=== PATIENT | female | born 1930 | race Caucasian/White ===

== ENCOUNTER → 2017-04-02 | Outpatient (CLI) | payer MEDICARE, MEDICAID | LOC: WOUNDCARE 09:46 | PROVIDERS: ATTEND Surgery | DX: L97.222 Non-pressure chronic ulcer of left calf with fat layer exposed (principal); I87.332 Chronic venous hypertension (idiopathic) with ulcer and inflammation of left lower extremity; I70.242 Atherosclerosis of native arteries of left leg with ulceration of calf; L03.116 Cellulitis of left lower limb | CPT/HCPCS: 11042; 87070; 87075; 87077; 87205 ==

== ENCOUNTER → 2017-04-09 | Outpatient (CLI) | payer MEDICARE, MEDICAID | LOC: WOUNDCARE 08:53 | PROVIDERS: ATTEND Surgery | DX: L97.222 Non-pressure chronic ulcer of left calf with fat layer exposed (principal); I87.332 Chronic venous hypertension (idiopathic) with ulcer and inflammation of left lower extremity; I70.242 Atherosclerosis of native arteries of left leg with ulceration of calf | CPT/HCPCS: 11042 ==

== ENCOUNTER → 2017-04-16 | Outpatient (CLI) | payer MEDICARE, MEDICAID | LOC: WOUNDCARE 09:00 | PROVIDERS: ATTEND Surgery | DX: L97.222 Non-pressure chronic ulcer of left calf with fat layer exposed (principal); I87.332 Chronic venous hypertension (idiopathic) with ulcer and inflammation of left lower extremity; I70.242 Atherosclerosis of native arteries of left leg with ulceration of calf | CPT/HCPCS: 97597 ==

== ENCOUNTER → 2017-04-23 | Outpatient (CLI) | payer MEDICARE, MEDICAID | LOC: WOUNDCARE 09:00 | PROVIDERS: ATTEND Surgery | DX: L97.222 Non-pressure chronic ulcer of left calf with fat layer exposed (principal); I87.332 Chronic venous hypertension (idiopathic) with ulcer and inflammation of left lower extremity; I70.242 Atherosclerosis of native arteries of left leg with ulceration of calf | CPT/HCPCS: 99212 ==

== ENCOUNTER 2017-10-31 09:14 | Emergency (ER) | payer MEDICARE, MEDICAID ==
[~2017-10-31] VITALS: Ht 162.6 cm; Wt 70.3 kg
--- OUTSIDE RECORDS SUMMARY | 2017-10-31 09:20 | XMS REPORT ---
Author Author [facility] Organization [facility] Address [address] [place], [place] [id number] Care Team Providers Care Washtub Worker Name Role Phone PCP Unavailable Allergies and Adverse Reactions Name Reaction Notes SULFA (SULFONAMIDES) swelling Plan of Treatment Not available. Medications Active Name Start Date Estimated Completion Date SIG Comments Xanax oral tablet 0.25 mg take 1 tablet (0.25 mg) by oral route daily q am Tums oral tablet,chewable 200 mg calcium (500 mg) chew 1-2 tablets by oral route As needed meclizine oral tablet 25 mg take 1 tablet (25 mg) by oral route 3 times per day as needed Milk of Magnesia oral suspension 400 mg/5 mL take 30 milliliters by oral route once daily as needed, followed by a full glass (8 oz) of liquid furosemide oral tablet 40 mg 03/17/2014 take 1 tablet (40 mg) by oral route once daily as needed potassium chloride oral capsule, extended release 10 mEq 03/17/2014 take 1 capsule (10 meq) by oral route once a day with furosemide Bactroban topical ointment 2 % 05/12/2014 apply to affected area by external route 2 times a day Miralax oral powder 17 gram/dose 10/27/2014 take 17 gram mixed with 8 oz. water, juice, soda, coffee or tea by oral route once every other day docusate sodium oral tablet 100 mg 10/27/2014 04/25/2015 take 1 tablet by oral route daily for 30 days Name Start Date Expiration Date SIG Comments prednisone oral tablet 20 mg 06/18/2014 06/23/2014 take 1 tablet (20 mg) by oral route once daily for 5 days clindamycin HCl oral capsule 300 mg 06/18/2014 06/25/2014 take 1 capsule ( 300 mg) by oral route 2 times per day for 7 days clindamycin HCl oral capsule 300 mg 09/03/2014 09/10/2014 take 1 capsule (300 mg) by oral route 2 times per day for 7 days prednisone oral tablet 20 mg 09/03/2014 09/08/2014 take 1 tablet (20 mg) by oral route once daily for 5 days Problem List Description Status Onset Anxiety Active Hypertension Active Muscle weakness Active Acid Reflux Active Hypothyroidism, Acquired Active Vital Signs Date Time BP-Sys(mm[Hg] BP-Althae(mm[Hg]) HR(bpm) RR(rpm) Temp WT HT HC BMI BSA BMI Percentile O2 Sat(%) 10/27/2014 10:56:00 AM 128 mmHg 70 mmHg 75 bpm 20 rpm 98.2 F 180 lbs 66.75 in 28.40 kg/m2 1.96 m2 100 % 09/24/2014 8:13:00 AM 148 mmHg 80 mmHg 77 bpm 16 rpm 96.9 F 182 lbs 66.75 in 28.7189 kg/m 1.9718 m 99 % 09/03/2014 3:21:00 PM 162 mmHg 80 mmHg 88 bpm 20 rpm 98 F 179 lbs 78.75 in 20.29 kg/m2 2.12 m2 98 % 07/14/2014 8:06:00 AM 136 mmHg 72 mmHg 78 bpm 16 rpm 98 F 175 lbs 66.75 in 27.6143 kg/m 1.9335 m 99 % 06/18/2014 2:04:00 PM 122 mmHg 64 mmHg 88 bpm 16 rpm 98.8 F 176 lbs 66.75 in 27.77 kg/m2 1.94 m2 97 % 05/12/2014 8:12:00 AM 130 mmHg 66 mmHg 77 bpm 16 rpm 97.4 F 178 lbs 66.75 in 28.0877 kg/m 1.95 m 98 % 03/17/2014 8:07:00 AM 128 mmHg 70 mmHg 75 bpm 20 rpm 97 F 174 lbs 66.75 in 27.46 kg/m2 1.93 m2 99 % 02/06/2014 9:27:00 AM 122 mmHg 70 mmHg 76 bpm 18 rpm 97.8 F 176 lbs 66.75 in 27.7721 kg/m 1.939 m 98 % 01/26/2014 9:47:00 AM 142 mmHg 88 mmHg 78 bpm 18 rpm 97.6 F 175.375 lbs 66.75 in 27.67 kg/m2 1.94 m2 99 % Social History Name Description Comments Tobacco Unknown if ever smoked Lives with spouse lives in long term History of Procedures Not available. Results Summary Data and Description Results 06/24/2014 9:19 AM COLOR YELLOW APPEARANCE HAZY SPEC GRAV 1.010 pH 7.0 PROTEIN NEGATIVE GLUCOSE NEGATIVE KETONE NEGATIVE BILIRUBIN NEGATIVE BLOOD NEGATIVE NITRITE NEGATIVE LEUK SCREEN NEGATIVE CASTS/LPF NEGATIVE CRYSTALS 2++ AMORPHOUS MUCOUS THRDS NEGATIVE BACTERIA 1+ EPITH CELLS FEW SQUAMOUS TRICHOMONAS NEGATIVE YEAST NEGATIVE GLUCOSE 115.0 mg/dLSODIUM 136.0 mmol/ LPOTASSIUM 4.0 mmol/LCHLORIDE 99.0 mmol/LCO2 27.0 mmol/LBUN 10.0 mg/ dLCREATININE 0.70 mg/dLSGOT/AST 22.0 IU/LSGPT/ALT 23.0 IU/LALK PHOS 77.0 IU/ LTOTAL PROTEIN 6.40 g/dLALBUMIN 3.70 g/dLTOTAL BILI 0.60 mg/dLCALCIUM 9.30 mg/ dLeGFR 60 WBC 1.8 RBC 4.32 HGB 13.10 g/dLHCT 38.30 %MCV 89.0 fLMCH 30.30 pgMCHC 34.20 g/dLRDW CV 14.0 %MPV 9.30 fLPLT 81 %NEUT 65.40 %%LYMP 21.20 %%MONO 12.80 % %EOS 0.60 %%BASO 0.0 %#NEUT 1.17 #LYMP 0.38 #MONO 0.23 #EOS 0.01 #BASO 0.00 History Of Immunizations Not available. History of Past Illness Name Date of Onset Comments Anxiety Acid Reflux Hypothyroidism, Acquired Hypertension Muscle weakness Anxiety Jan 26 2014 10:01AM Hypertension Jan 26 2014 10:01AM Acid Reflux Jan 26 2014 10:01AM Vertigo Jan 26 2014 10:01AM Hypothyroidism (acquired) Jan 26 2014 10:01AM Hypertension Feb 06 2014 9:30AM Hypothyroidism, Acquired Feb 06 2014 9:30AM Anxiety Feb 06 2014 9:30AM Hypertension Feb 06 2014 9:30AM Acid Reflux Feb 06 2014 9:30AM Hypothyroidism (acquired) Feb 06 2014 9:30AM Hypothyroidism, Acquired Mar 17 2014 8:10AM Anxiety Mar 17 2014 8:10AM Hypertension Mar 17 2014 8:10AM Acid Reflux Mar 17 2014 8:10AM Hypothyroidism (acquired) Mar 17 2014 8:10AM Dependent edema Mar 17 2014 8:10AM Hypothyroidism, Acquired May 12 2014 8:15AM Anxiety May 12 2014 8:15AM Hypertension May 12 2014 8:15AM Acid Reflux May 12 2014 8:15AM Bronchitis, Acute Jun 18 2014 2:06PM Hypothyroidism, Acquired Jul 14 2014 8:05AM Anxiety Jul 14 2014 8:05AM Hypertension Jul 14 2014 8:05AM Acid Reflux Jul 14 2014 8:05AM Dependent edema Jul 14 2014 8:05AM Bronchitis, Acute Sep 03 2014 3:23PM Hypothyroidism, Acquired Sep 24 2014 8:17AM Anxiety Sep 24 2014 8:17AM Hypertension Sep 24 2014 8:17AM Acid Reflux Sep 24 2014 8:17AM Dependent edema Sep 24 2014 8:17AM Edema Oct 27 2014 10:58AM Hypertension Oct 27 2014 10:58AM Payers Insurance Name Company Name Plan Name Plan Number Policy Number Policy Group Number Start Date Medicare Part A Medicare Part A [id number] N/A [facility] [id number] N/A Medicare Part B Medicare Of [place] [id number] N/A [employer] Financial Assistance [employer] Nani 50 Percent Monday, July 02, 2012 History of Encounters Visit Date Visit Type Provider 10/27/2014 Office visit Dean Fletcher DO 09/24/2014 Office visit Dean Fletcher DO 09/03/2014 Office visit Dean Fletcher DO 07/14/2014 Office visit Dean Fletcher DO 06/18/2014 Office visit Dean Fletcher DO 05/12/2014 Office visit Dean Fletcher DO 03/17/2014 Office visit Dean Fletcher DO 02/06/2014 Office visit Dean Fletcher DO 01/26/2014 Office visit Dean Fletcher DO 05/19/2012 [facility] Johann Forrest MD 03/11/2012 Hospital Johann Forrest MD 01/17/2012 Hospital Johann Forrest MD
--- OUTSIDE RECORDS SUMMARY | 2017-10-31 09:21 | XMS REPORT ---
Author Author Dean Fletcher [facility] Address [address] [place], [place] [id number] Care Team Providers Care Diaphragm Builder Name Role Phone Dean Fletcher PCP Unavailable Allergies and Adverse Reactions Name Reaction Notes SULFA (SULFONAMIDES) swelling Plan of Treatment Not available. Medications Active Name Start Date Estimated Completion Date SIG Comments Tums 200 mg calcium (500 mg) oral tablet,chewable chew 1-2 tablets by oral route As needed meclizine 25 mg oral tablet take 1 tablet (25 mg) by oral route 3 times per day as needed Milk of Magnesia 400 mg/5 mL oral suspension take 30 milliliters by oral route once daily as needed, followed by a full glass (8 oz) of liquid furosemide 40 mg oral tablet 03/17/2014 take 1 tablet (40 mg) by oral route once daily as needed potassium chloride 10 mEq oral capsule, extended release 03/17/2014 take 1 capsule (10 meq) by oral route once a day with furosemide Bactroban 2 % topical ointment 05/12/2014 apply to affected area by external route 2 times a day Miralax 17 gram/dose oral powder 10/27/2014 take 17 gram mixed with 8 oz. water, juice, soda, coffee or tea by oral route once every other day Xanax 0.25 mg oral tablet 06/14/2015 08/09/2015 take 0.5 tablet by oral route once a day Name Start Date Expiration Date SIG Comments prednisone 20 mg oral tablet 06/18/2014 06/23/2014 take 1 tablet (20 mg) by oral route once daily for 5 days clindamycin HCl 300 mg oral capsule 06/18/2014 06/25/2014 take 1 capsule ( 300 mg) by oral route 2 times per day for 7 days clindamycin HCl 300 mg oral capsule 09/03/2014 09/10/2014 take 1 capsule (300 mg) by oral route 2 times per day for 7 days prednisone 20 mg oral tablet 09/03/2014 09/08/2014 take 1 tablet (20 mg) by oral route once daily for 5 days docusate sodium 100 mg oral tablet 10/27/2014 04/25/2015 take 1 tablet by oral route daily for 30 days levothyroxine 50 mcg oral tablet 11/12/2014 05/11/2015 take 1 tablet (50 mcg ) by oral route once daily for 30 days Cipro 500 mg oral tablet 02/24/2015 03/03/2015 take 1 tablet (500 mg) by oral route 2 times per day for 7 days Problem List Description Status Onset Anxiety Active Hypertension Active Muscle weakness Active Acid Reflux Active Hypothyroidism, Acquired Active Vital Signs Date Time BP-Sys(mm[Hg] BP-Althea(mm[Hg]) HR(bpm) RR(rpm) Temp WT HT HC BMI BSA BMI Percentile O2 Sat(%) 03/25/2015 9:02:00 AM 132 mmHg 70 mmHg 80 bpm 16 rpm 98.1 F 176 lbs 66.75 in 27.77 kg/m2 1.94 m2 100 % 01/22/2015 8:36:00 AM 130 mmHg 78 mmHg 66 bpm 18 rpm 98 F 181 lbs 66.75 in 28.5611 kg/m 1.9664 m 97 % 11/24/2014 9:37:00 AM 138 mmHg 70 mmHg 78 bpm 18 rpm 98.1 F 183 lbs 66.75 in 28.88 kg/m2 1.98 m2 98 % 10/27/2014 10:56:00 AM 128 mmHg 70 mmHg 75 bpm 20 rpm 98.2 F 180 lbs 66.75 in 28.4033 kg/m 1.9609 m 100 % 09/24/2014 8:13:00 AM 148 mmHg 80 mmHg 77 bpm 16 rpm 96.9 F 182 lbs 66.75 in 28.72 kg/m2 1.97 m2 99 % 09/03/2014 3:21:00 PM 162 mmHg 80 mmHg 88 bpm 20 rpm 98 F 179 lbs 78.75 in 20.2932 kg/m 2.124 m 98 % 07/14/2014 8:06:00 AM 136 mmHg 72 mmHg 78 bpm 16 rpm 98 F 175 lbs 66.75 in 27.61 kg/m2 1.93 m2 99 % 06/18/2014 2:04:00 PM 122 mmHg 64 mmHg 88 bpm 16 rpm 98.8 F 176 lbs 66.75 in 27.7721 kg/m 1.939 m 97 % 05/12/2014 8:12:00 AM 130 mmHg 66 mmHg 77 bpm 16 rpm 97.4 F 178 lbs 66.75 in 28.09 kg/m2 1.95 m2 98 % 03/17/2014 8:07:00 AM 128 mmHg 70 mmHg 75 bpm 20 rpm 97 F 174 lbs 66.75 in 27.4565 kg/m 1.928 m 99 % 02/06/2014 9:27:00 AM 122 mmHg 70 mmHg 76 bpm 18 rpm 97.8 F 176 lbs 66.75 in 27.77 kg/m2 1.94 m2 98 % 01/26/2014 9:47:00 AM 142 mmHg 88 mmHg 78 bpm 18 rpm 97.6 F 175.375 lbs 66.75 in 27.6735 kg/m 1.9356 m 99 % Social History Name Description Comments Tobacco Unknown if ever smoked Lives with spouse lives in [place] [facility] History of Procedures Not available. Results Summary [...] 0.38 #MONO 0.23 #EOS 0.01 #BASO 0.00 11/11/2014 8:33 AM GLUCOSE 126.0 mg/dLSODIUM 140.0 mmol/LPOTASSIUM 4.10 mmol/ LCHLORIDE 102.0 mmol/LCO2 27.0 mmol/LBUN 11.0 mg/dLCREATININE 0.80 mg/dLSGOT/ AST 15.0 IU/LSGPT/ALT 13.0 IU/LALK PHOS 99.0 IU/LTOTAL PROTEIN 6.50 g/dLALBUMIN 3.90 g/dLTOTAL BILI 0.90 mg/dLCALCIUM 9.40 mg/dLeGFR >60 mL/min/1.73 m2TSH 7.50 uIU/mLWBC 3.2 RBC 4.21 HGB 12.80 g/dLHCT 38.30 %MCV 91.0 fLMCH 30.40 pgMCHC 33.40 g/dLRDW CV 14.0 %MPV 9.70 fLPLT 104 %NEUT 61.40 %%LYMP 28.20 %%MONO 8.80 % %EOS 1.30 %%BASO 0.30 %#NEUT 1.96 #LYMP 0.90 #MONO 0.28 #EOS 0.04 #BASO 0.01 04/23/2015 11:52 AM COLOR YELLOW APPEARANCE CLEAR SPEC GRAV 1.020 pH 5.5 PROTEIN NEGATIVE GLUCOSE 500 KETONE NEGATIVE BILIRUBIN NEGATIVE BLOOD NEGATIVE NITRITE NEGATIVE LEUK SCREEN MODERATE CASTS/LPF NEGATIVE /LPFCRYSTALS NEGATIVE MUCOUS THRDS NEGATIVE BACTERIA 3+++ EPITH CELLS 2++ SQUAMOUS /HPFTRICHOMONAS NEGATIVE YEAST NEGATIVE History Of Immunizations Not available. History of [...] 2014 10:58AM Hypertension Oct 27 2014 10:58AM Hypothyroidism, Acquired Nov 24 2014 9:39AM Anxiety Nov 24 2014 9:39AM Hypertension Nov 24 2014 9:39AM Acid Reflux Nov 24 2014 9:39AM Dependent edema Nov 24 2014 9:39AM Hypothyroidism, Acquired Jan 22 2015 8:38AM Anxiety Jan 22 2015 8:38AM Hypertension Jan 22 2015 8:38AM Acid Reflux Jan 22 2015 8:38AM Dependent edema Jan 22 2015 8:38AM Hypothyroidism, Acquired Mar 25 2015 9:03AM Anxiety Mar 25 2015 9:03AM Hypertension Mar 25 2015 9:03AM Acid Reflux Mar 25 2015 9:03AM Onychomycosis of right great toe Mar 25 2015 9:03AM Payers Insurance Name Company Name Plan Name Plan Number Policy Number Policy Group Number Start Date Medicare Part A Medicare Part A [id number] N/A [facility] [id number] N/A Medicare Part B Medicare Of [place] [id number] N/A [employer] Financial Assistance [employer] Nani 50 Percent Monday, July 02, 2012 History of Encounters Visit Date Visit Type Provider 03/25/2015 Office visit Dean Fletcher DO 01/22/2015 Office visit Dean Fletcher DO 11/24/2014 Office visit Dean Fletcher DO 10/27/2014 Office visit Dean Fletcher DO 09/24/2014 Office visit Dean Fletcher DO 09/03/2014 Office visit Dean Fletcher DO 07/14/2014 Office visit Dean Fletcher DO 06/18/2014 Office visit Dean Fletcher DO 05/12/2014 Office visit Dean Fletcher DO 03/17/2014 Office visit Dean Fletcher DO 02/06/2014 Office visit Dean Fletcher DO 01/26/2014 Office visit Dean Fletcher DO 05/19/2012 Hospital Johann Forrest MD 03/11/2012 [facility] Johann Forrest MD 01/17/2012 [facility] Johann Forrest MD
--- OUTSIDE RECORDS SUMMARY | 2017-10-31 09:21 | XMS REPORT ---
Author Author [facility] Organization [facility] Address [address] [place], [place] [id number] Care Team Providers Care Assistant Counsel Name Role Phone PCP Unavailable Allergies and [...] oral route daily for 30 days levothyroxine oral tablet 50 mcg 11/12/2014 05/11/2015 take 1 tablet (50 mcg ) by oral route once daily for 30 days Name Start Date [...] HC BMI BSA BMI Percentile O2 Sat(%) 11/24/2014 9:37:00 AM 138 mmHg 70 mmHg [...] ever smoked Lives with spouse lives in prison History of Procedures Not available. Results Summary [...] 0.90 #MONO 0.28 #EOS 0.04 #BASO 0.01 History Of Immunizations Not available. History of [...] 9:39AM Dependent edema Nov 24 2014 9:39AM Payers Insurance Name Company Name Plan Name Plan Number Policy Number Policy Group Number Start Date Medicare Part A Medicare Part A [id number] N/A [facility] [id number] N/A Medicare Part B Medicare Of [place] [id number] N/A [employer] Financial Assistance [employer] Financial Nani 50 Percent Monday, July 02, 2012 History of Encounters Visit Date Visit Type Provider 11/24/2014 Office visit Dean Fletcher DO 10/27/2014 Office visit Dean Stackte DO 09/24/2014 Office visit Dean Stackte DO 09/03/2014 Office visit Dean Chance DO 07/14/2014 Office visit Dean Chance DO 06/18/2014 Office visit Dean Chance DO 05/12/2014 Office visit Dean Chance DO 03/17/2014 Office visit Dean Chance DO 02/06/2014 Office visit Dean Chance DO 01/26/2014 Office visit Dean Fletcher DO 05/19/2012 Hospital Johann Forrest MD 03/11/2012 Hospital Johann Forrest MD 01/17/2012 Marquise Forrest MD
--- OUTSIDE RECORDS SUMMARY | 2017-10-31 09:22 | XMS REPORT ---
Author Author [facility] Organization [facility] Address [address] [place], [place] [id number] Care Team Providers Care Research Compliance Specialist Name Role Phone PCP Unavailable Allergies and [...] Date Medicare Part A Medicare Part A [id number] N/A [facility] [id number] N/A Medicare Part B Medicare Of [place] [id number] N/A [employer] Financial Assistance [employer] Nani 50 Percent Monday, July 02, [...] 01/26/2014 Office visit Dean Fletcher DO 05/19/2012 [facility] Johann Forrest MD 03/11/2012 [facility] Johann Forrest MD 01/17/2012 [facility] Johann Forrest MD
--- OUTSIDE RECORDS SUMMARY | 2017-10-31 09:22 | XMS REPORT ---
Author Author [facility] Organization [facility] Address [address] [place], [place] [phone] Care Team Providers Care Vice President Risk Management Name Role Phone PCP Unavailable Allergies and Adverse Reactions Name Reaction Notes SULFA (SULFONAMIDES) swelling Plan of Treatment Not available. Medications Active Name Start Date Estimated Completion Date SIG Comments Tums oral tablet,chewable 200 mg calcium (500 [...] oral route once daily for 5 days Xanax oral tablet 0.25 mg 12/07/2014 01/04/2015 take 0.5 tablet by oral route once a day Problem List Description Status Onset Anxiety Active Hypertension Active Muscle weakness Active Acid Reflux Active Hypothyroidism, Acquired Active Vital Signs Date Time BP-Sys(mm[Hg] BP-Althea(mm[Hg]) HR(bpm) RR(rpm) Temp WT HT HC BMI BSA BMI Percentile O2 Sat(%) 01/22/2015 8:36:00 AM 130 mmHg 78 mmHg 66 bpm 18 rpm 98 F 181 lbs 66.75 in 28.56 kg/m2 1.97 m2 97 % 11/24/2014 9:37:00 AM 138 mmHg 70 mmHg 78 bpm 18 rpm 98.1 F 183 lbs 66.75 in 28.8767 kg/m 1.9772 m 98 % 10/27/2014 10:56:00 AM 128 mmHg [...] ever smoked Lives with spouse lives in skilled nursing History of Procedures Not available. Results Summary [...] 8:38AM Dependent edema Jan 22 2015 8:38AM Payers Insurance Name Company Name Plan Name Plan Number Policy Number Policy Group Number Start Date Medicare Part A Medicare Part A [id number] [facility] [id number] N/A Medicare Part B Medicare Of [place] [id number] N/A [employer] Financial Assistance [employer] Nani 50 Percent Monday, July 02, 2012 History of Encounters Visit Date Visit Type Provider 01/22/2015 Office visit Dean Stackte DO 11/24/2014 Office visit Dean Chance DO 10/27/2014 Office visit Dean Chance DO 09/24/2014 Office visit Dean Chance DO 09/03/2014 Office visit Dean Chance DO 07/14/2014 Office visit Dean Chance DO 06/18/2014 Office visit Dean Chance DO 05/12/2014 Office visit Dean Chance DO 03/17/2014 Office visit Dean Chance DO 02/06/2014 Office visit Dean Chance DO 01/26/2014 Office visit Dean Fletcher DO 05/19/2012 [facility] Johann Forrest MD 03/11/2012 Hospital Johann Forrest MD 01/17/2012 Hospital Johann Forrest MD
--- OUTSIDE RECORDS SUMMARY | 2017-10-31 09:22 | XMS REPORT ---
Author Author [facility] Organization [facility] Address [address] [place], [place] [id number] Care Team Providers Care Manager Hvac Name Role Phone PCP Unavailable Allergies and [...] ever smoked Lives with spouse lives in intermediate History of Procedures Not available. Results Summary [...] Date Medicare Part A Medicare Part A [id number] N/A [facility] [id number] N/A Medicare Part B Medicare Of [place] [id number] N/A [employer] Financial Assistance [employer] Nani 50 Percent Monday, July 02, [...] 01/26/2014 Office visit Dean Fletcher DO 05/19/2012 [facility] Johann Forrest MD 03/11/2012 [facility] Johann Forrest MD 01/17/2012 [facility] Johann Forrest MD
--- OUTSIDE RECORDS SUMMARY | 2017-10-31 09:23 | XMS REPORT ---
Author Author Dean Fletcher [facility] Address [address] [place], [place] [address] Care Team Providers Care Creative Director Name Role Phone Dean Fletcher PCP Unavailable [...] route once every other day docusate sodium 100 mg oral tablet 10/27/2014 04/25/2015 take 1 tablet by oral route daily for 30 days levothyroxine 50 mcg oral tablet 11/12/2014 05/11/2015 take 1 tablet (50 mcg ) by oral route once daily for 30 days Cipro 500 mg oral tablet 02/24/2015 03/03/2015 take 1 tablet (500 mg) by oral route 2 times per day for 7 days Name Start Date Expiration Date SIG [...] route once daily for 5 days Xanax 0.25 mg oral tablet 12/07/2014 01/04/2015 take 0.5 tablet by oral [...] ever smoked Lives with spouse lives in [facility] History of Procedures Not available. Results Summary [...] Date Medicare Part A Medicare Part A [id number] N/A [facility] [id number] N/A Medicare Part B Medicare Of [place] [id number] N/A [employer] Financial Assistance [employer] Nani 50 Percent Monday, July 02, [...] 05/19/2012 Hospital Johann Forrest MD 03/11/2012 [facility] Johann Forrest MD 01/17/2012 [facility] Johann Forrest MD
--- OUTSIDE RECORDS SUMMARY | 2017-10-31 09:23 | XMS REPORT ---
Author Author Dean Fletcher [facility] Address [address] [place], [place] [address] Care Team Providers Care Cant Hooker Name Role Phone Dean Fletcher PCP Unavailable [...] ever smoked Lives with spouse lives in custodial History of Procedures Not available. Results Summary [...] Date Medicare Part A Medicare Part A [id number] N/A [facility] [id number] N/A Medicare Part B Medicare Of [place] [id number] N/A [employer] Financial Assistance [employer] [employer] Nani 50 Percent Monday, July 02, [...] DO 05/19/2012 Hospital Johann Forrest MD 03/11/2012 [facility] Johann Forrest MD 01/17/2012 [facility] Johann Forrest MD
--- OUTSIDE RECORDS SUMMARY | 2017-10-31 09:24 | XMS REPORT ---
Author Author Dean Fletcher [facility] Address [address] [place], [place] [address] Care Team Providers Care Rocket Motor Mechanic Name Role Phone Dean Fletcher PCP Unavailable [...] by oral route once every other day levothyroxine 50 mcg oral tablet 11/12/2014 05/11/2015 [...] by oral route daily for 30 days Xanax 0.25 mg oral tablet 12/07/2014 01/04/2015 take 0.5 tablet by oral route once a day Cipro 500 mg oral tablet 02/24/2015 03/03/2015 [...] ever smoked Lives with spouse lives in [facility] History of Procedures Not available. Results Summary [...] Date Medicare Part A Medicare Part A [id number] N/A [facility] [id number] N/A Medicare Part B Medicare Of [place] [id number] N/A [employer] Financial Assistance [facility] Financial Nani 50 Percent Monday, July 02, [...] 01/26/2014 Office visit Dean Fletcher DO 05/19/2012 [facility] Johann Forrest MD 03/11/2012 [facility] Johann Forrest MD 01/17/2012 [facility] Johann Forrest MD
--- OUTSIDE RECORDS SUMMARY | 2017-10-31 09:25 | XMS REPORT ---
Author Author Dean Fletcher [facility] Address [address] [place], [place] [id number] Care Team Providers Care Telegraphic Instrument Supervisor Name Role Phone Dean Fletcher PCP Unavailable Allergies and Adverse Reactions Name Reaction Notes SULFA (SULFONAMIDES) swelling Plan of Treatment Not available. Medications Active Name Start Date Estimated Completion Date SIG Comments Milk of Magnesia 400 mg/5 mL oral suspension take 30 milliliters by oral route once daily as needed, followed by a full glass (8 oz) of liquid furosemide 40 mg oral tablet 03/17/2014 take 1 tablet (40 mg) by oral route once daily as needed Miralax 17 gram/dose oral powder 10/27/2014 take 17 gram mixed with 8 oz. water, juice, soda, coffee or tea by oral route once every other day meclizine 12.5 mg oral tablet take 1 tablet (12.5 mg) by oral route once daily as needed Xanax 0.25 mg oral tablet 09/07/2015 11/02/2015 take 0.5 tablet by oral route once [...] oral route once daily for 5 days Cipro 500 mg oral tablet 02/24/2015 03/03/2015 take 1 tablet (500 mg) by oral route 2 times per day for 7 days Discontinued Name Start Date Discontinued Date SIG Comments Tums 200 mg calcium (500 mg) oral tablet,chewable 07/15/2015 chew 1-2 tablets by oral route As needed meclizine 25 mg oral tablet 07/15/2015 take 1 tablet (25 mg) by oral route 3 times per day as needed dose change potassium chloride 10 mEq oral capsule, extended release 03/17/2014 07/15/2015 take 1 capsule (10 meq) by oral route once a day with furosemide not on medication list from [facility] Bactroban 2 % topical ointment 05/12/2014 07/15/2015 apply to affected area by external route 2 times a day docusate sodium 100 mg oral tablet 10/27/2014 07/15/2015 take 1 tablet by oral route daily for 30 days not on medication list from [facility] levothyroxine 50 mcg oral tablet 11/12/2014 07/15/2015 take 1 tablet (50 mcg) by oral route once daily for 30 days not on medication list from [facility] Problem List Description Status Onset Anxiety Active Hypertension Active Muscle weakness Active Acid Reflux Active Hypothyroidism, Acquired Active Constipation Active Edema Active Gastroesophageal Reflux Active History of falling Active Hypothyroidism Active Urinary Tract Infection Active Vital Signs Date Time BP-Sys(mm[Hg] BP-Althea(mm[Hg]) HR(bpm) RR(rpm) Temp WT HT HC BMI BSA BMI Percentile O2 Sat(%) 09/22/2015 9:13:00 AM 138 mmHg 70 mmHg 84 bpm 20 rpm 97.4 F 172 lbs 66.75 in 27.14 kg/m2 1.92 m2 99 % 07/14/2015 9:09:00 AM 124 mmHg 76 mmHg 82 bpm 20 rpm 98.2 F 172 lbs 64 in 29.5234 kg/m 1.877 m 98 % 03/25/2015 9:02:00 AM 132 mmHg 70 mmHg [...] % Social History Name Description Comments Tobacco Never smoker Lives with spouse lives in jail History of Procedures Not available. Results Summary [...] Acid Reflux Hypothyroidism, Acquired Hypertension Muscle weakness Edema Hypothyroidism Gastroesophageal Reflux Constipation History of falling Urinary Tract Infection Anxiety Jan 26 2014 10:01AM Hypertension Jan [...] right great toe Mar 25 2015 9:03AM Hypothyroidism, Acquired Jul 14 2015 9:12AM Anxiety Jul 14 2015 9:12AM Hypertension Jul 14 2015 9:12AM Acid Reflux Jul 14 2015 9:12AM Onychomycosis of right great toe Improving Jul 14 2015 9:12AM Slow transit constipation Jul 14 2015 9:12AM Hypothyroidism, Acquired Sep 22 2015 9:16AM Anxiety Sep 22 2015 9:16AM Hypertension Sep 22 2015 9:16AM Acid Reflux Sep 22 2015 9:16AM Slow transit constipation Sep 22 2015 9:16AM Payers Insurance Name Company Name Plan Name Plan Number Policy Number Policy Group Number Start Date Medicare Part A Medicare Part A [id number] N/A [facility] [id number] N/A Medicare Part B Medicare Of [place] [id number] N/A [employer] Financial Assistance [employer] Nani 50 Percent Monday, July 02, 2012 History of Encounters Visit Date Visit Type Provider 09/22/2015 Office visit Dean Chance DO 07/14/2015 Office visit Dean Chance DO 03/25/2015 Office visit Dean Chance DO 01/22/2015 Office visit Dean Chance DO 11/24/2014 Office visit Dean Chance DO 10/27/2014 Office visit Dean Chance DO 09/24/2014 Office visit Dean Chance DO 09/03/2014 Office visit Dean Chance DO 07/14/2014 Office visit Dean Chance DO 06/18/2014 Office visit Dean Chance DO 05/12/2014 Office visit Dean Chance DO 03/17/2014 Office visit Dean Chance DO 02/06/2014 Office visit Dean Chance DO 01/26/2014 Office visit Dean Stackte DO 05/19/2012 Hospital Johann Forrest MD 03/11/2012 [facility] Johann Forrest MD 01/17/2012 [facility] Johann Forrest MD
--- OUTSIDE RECORDS SUMMARY | 2017-10-31 09:25 | XMS REPORT ---
Author Author Dean Fletcher [facility] Address [address] [place], [place] [id number] Care Team Providers Care Sports Medicine Physician Name Role Phone Dean Fletcher PCP Unavailable [...] other day Xanax 0.25 mg oral tablet 07/14/2015 09/08/2015 take 0.5 tablet by oral route once a day meclizine 12.5 mg oral tablet take 1 tablet (12.5 mg) by oral route once daily as needed Name Start Date Expiration Date SIG Comments [...] with furosemide not on medication list from [facility] Bactroban 2 % topical ointment 05/12/2014 07/15/2015 apply to affected area by external route 2 times a day docusate sodium 100 mg oral tablet 10/27/2014 07/15/2015 take 1 tablet by oral route daily for 30 days not on medication list from [facility] levothyroxine 50 mcg oral tablet 11/12/2014 07/15/2015 take 1 tablet (50 mcg) by oral route once daily for 30 days not on medication list from [facility] Problem List Description Status Onset Anxiety Active Hypertension Active Muscle weakness Active Acid Reflux Active Hypothyroidism, Acquired Active Constipation Active Edema Active Gastroesophageal Reflux Active History of falling Active Hypothyroidism Active Urinary Tract Infection Active Vital Signs Date Time BP-Sys(mm[Hg] BP-Althea(mm[Hg]) HR(bpm) RR(rpm) Temp WT HT HC BMI BSA BMI Percentile O2 Sat(%) 07/14/2015 9:09:00 AM 124 mmHg 76 mmHg 82 bpm 20 rpm 98.2 F 172 lbs 64 in 29.52 kg/m2 1.88 m2 98 % 03/25/2015 9:02:00 AM 132 mmHg 70 mmHg 80 bpm 16 rpm 98.1 F 176 lbs 66.75 in 27.7721 kg/m 1.939 m 100 % 01/22/2015 8:36:00 AM 130 mmHg [...] ever smoked Lives with spouse lives in care home History of Procedures Not available. Results Summary [...] Slow transit constipation Jul 14 2015 9:12AM Payers Insurance Name Company Name Plan Name Plan Number Policy Number Policy Group Number Start Date Medicare Part A Medicare Part A [id number] N/A [facility] [id number] N/A Medicare Part B Medicare Of [place] [id number] N/A [employer] Financial Assistance [employer] Nani 50 Percent Monday, July 02, 2012 History of Encounters Visit Date Visit Type Provider 07/14/2015 Office visit Dean Stackte DO 03/25/2015 Office visit Dean Chance DO [...] 01/26/2014 Office visit Dean Fletcher DO 05/19/2012 [facility] Johann Forrest MD 03/11/2012 Marquise Forrest MD 01/17/2012 Marquise Forrest MD
--- OUTSIDE RECORDS SUMMARY | 2017-10-31 09:26 | XMS REPORT | Continuity of Care Document ---
Author Author [facility] Organization [facility] Address Unknown Phone Unavailable Allergies Active Description Code Type Severity Reaction Onset Reported/Identified Relationship to Patient Clinical Status Yes SULFANILAMIDE (BULK) UNKNOWN OTHER Medications Medication Packaging Start Date Stop Date Route Dosage Sig POTASSIUM CHLORIDE TAB 10 MEQ (K-DUR) MEQ 08/21/2017 09/20/2017 TID&0700,1200,1730 IBUPROFEN TAB 400 MG (MOTRIN) MG 09/20/2017 PRN Q6H MILK OF MAGNESIA LIQ ml 08/21/2017 09/20/2017 PRN Q6H CALMOSEPTINE OINT TUBE (RISAMINE OINT) sherice 08/21/2017 09/20/2017 PRN QID TRAZODONE TAB 50 MG (DESYREL) MG 09/20/2017 PRN QHS POLYETHYLENE GLYCOL POWDER UD PWD (MIRALAX 17GM UNIT DOSE PAKS) gm 08/21/2017 09/20/2017 PRN Daily MELATONIN TAB 3 MG (MELATONIN) MG 08/21/2017 09/20/2017 PRN QHS Haloperidol 0.25mg (Haldol) oral tablet MG 08/21/2017 09/20/2017 PRN Q6H ALUM/MAG/SIMETH 30CC LIQ (MYLANTA PLUS) cc 08/21/2017 09/20/2017 PRN Q4H CITALOPRAM TAB 20 MG (CELEXA) MG 08/21/2017 ONCE&0900 ALPRAZOLAM TAB 0.25 MG (XANAX) MG 08/21/2017 09/20/2017 BID&0800,2000 METFORMIN XR TAB 500 MG (GLUCOPHAGE XR) MG 08/21/2017 09/20/2017 BID&0800,2000 ACETAMINOPHEN TAB 500 MG (TYLENOL) MG 08/21/2017 09/20/2017 BID&0800,2000 LACTULOSE SYRUP LIQ 20 GM/30CC (CHRONULAC SYRUP) GM 08/21/2017 09/20/2017 BID&0800,2000 FOLIC ACID TAB 1 MG MG 08/22/2017 09/20/2017 Daily& 0900 FUROSEMIDE TAB 20 MG (LASIX) MG 09/20/2017 Daily&0900 CITALOPRAM TAB 10 MG (CELEXA) MG 09/20/2017 Daily&0900 VITAMIN D-3 TAB 1000 UNITS (VITAMIN D-3) UNITS 08/22/2017 09/20/2017 Daily&0900 CYANOCOBALAMIN TAB 1000 MCG (VIT B 12) MCG 08/22/2017 09/20/2017 Daily&0900 PREDNISONE TAB 10 MG (DELTASONE) MG 08/22/2017 09/20/2017 Daily&0900 POTASSIUM CHLORIDE TAB 10 MEQ (K-DUR) MEQ 08/22/2017 08/22/2017 ONCE&1220 ALUM/MAG/SIMETH 30CC LIQ (MYLANTA PLUS) cc 08/22/2017 09/21/2017 PRN Q4H CALMOSEPTINE OINT TUBE (RISAMINE OINT) sherice 08/22/2017 09/21/2017 PRN QID IBUPROFEN TAB 400 MG (MOTRIN) MG 09/21/2017 PRN Q4H HALOPERIDOL TAB 0.5 MG (HALDOL) MG 08/22/2017 09/21/2017 PRN Q6H MILK OF MAGNESIA LIQ ml 08/22/2017 09/21/2017 PRN Q6H ALPRAZOLAM TAB 0.25 MG (XANAX) MG 08/22/2017 09/21/2017 BID&0800,2000 POTASSIUM CHLORIDE TAB 10 MEQ (K-DUR) Dose(s) 08/22/2017 09/21/2017 TID&0800,1400,2000 METFORMIN XR TAB 500 MG (GLUCOPHAGE XR) MG 08/22/2017 09/21/2017 BID&0800,2000 ACETAMINOPHEN TAB 500 MG (TYLENOL) MG 08/22/2017 09/21/2017 BID&0800,2000 LACTULOSE SYRUP LIQ 20 GM/30CC (CHRONULAC SYRUP) GM 08/22/2017 09/21/2017 BID&0800,2000 TRAZODONE TAB 50 MG (DESYREL) MG 09/21/2017 PRN QHS MELATONIN TAB 3 MG (MELATONIN) MG 08/22/2017 09/21/2017 PRN QHS FOLIC ACID TAB 1 MG MG 08/23/2017 09/21/2017 Daily& 0900 FUROSEMIDE TAB 20 MG (LASIX) MG 09/21/2017 Daily&0900 POLYETHYLENE GLYCOL POWDER UD PWD (MIRALAX 17GM UNIT DOSE PAKS) gm 08/23/2017 09/22/2017 PRN Daily CITALOPRAM TAB 10 MG (CELEXA) MG 09/21/2017 Daily&0900 VITAMIN D-3 TAB 1000 UNITS (VITAMIN D-3) UNITS 08/23/2017 09/21/2017 Daily&0900 CYANOCOBALAMIN TAB 1000 MCG (VIT B 12) MCG 08/23/2017 09/21/2017 Daily&0900 PREDNISONE TAB 10 MG (DELTASONE) MG 08/23/2017 09/21/2017 Daily&0900 ALPRAZOLAM TAB 0.25 MG (XANAX) MG 08/23/2017 08/25/2017 QHS&2100 BISACODYL SUPPOS 10 MG (DULCOLAX SUPPOS) MG 08/24/2017 08/31/2017 PRN Daily Haloperidol 0.25mg (Haldol) oral tablet MG 08/24/2017 09/23/2017 PRN Q6H BISACODYL SUPPOS 10 MG (DULCOLAX SUPPOS) MG 08/25/2017 08/31/2017 PRN Daily Haloperidol 0.25mg (Haldol) oral tablet MG 08/26/2017 09/24/2017 QAM&0800 SELENIUM SULF SHAMPOO TOP 1 % (SELSUN BLUE SHAMPOO) SHERICE 08/26/2017 09/23/2017 Q48H&0900 Lorazepam oral tablet 0.25mg (Ativan) MG 2017 09/06/2017 PRN Q6H DIVALPROEX SPRINKLE CAP 125 MG (DEPAKOTE SPRINKLE) MG 2017 09/25/2017 QHS&2100 Problems Date Dx Coded Attending Type Code Diagnosis Diagnosed By 04/10/2017 PACO CORDERO MD, Ot 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 [place]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 ULC 04/10/2017 PACO CORDERO MD, Ot 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 04/10/2017 PACO CORDERO MD Ot L03.116 CELLULITIS OF LEFT LOWER LIMB 04/10/2017 PACO CORDERO MD Ot L97.222 NON-PRESSURE CHRONIC ULCER OF LEFT CALF 04/25/2017 PACO CORDERO MD Ot 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 [place]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 ULC 04/25/2017 PACO CORDERO MD Ot 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 04/25/2017 PACO CORDERO MD Ot L97.222 NON-PRESSURE CHRONIC ULCER OF LEFT CALF 04/25/2017 PACO CORDERO MD Ot 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 [place]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 ULC 04/25/2017 PACO CORDERO MD, Ot 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 04/25/2017 PACO CORDERO MD Ot L03.116 CELLULITIS OF LEFT LOWER LIMB 04/25/2017 PACO CORDERO MD Ot L97.222 NON-PRESSURE CHRONIC ULCER OF LEFT CALF 05/03/2017 PACO CORDERO MD Ot 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 05/03/2017 PACO CORDERO MD Ot 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 05/03/2017 PACO CORDERO MD Ot L97.222 NON-PRESSURE CHRONIC ULCER OF LEFT CALF 05/09/2017 PACO CORDERO MD Ot 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 05/09/2017 PCAO CORDERO MD Ot 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 05/09/2017 PACO CORDERO MD Ot L97.222 NON-PRESSURE CHRONIC ULCER OF LEFT CALF 05/15/2017 PACO CORDERO MD Ot 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 05/15/2017 PACO CORDERO MD Ot 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 05/15/2017 PACO CORDERO MD Ot L97.222 NON-PRESSURE CHRONIC ULCER OF LEFT CALF 05/29/2017 PACO CORDERO MD Ot 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 [place]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 ULC 05/29/2017 PACO CORDERO MD Ot 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 05/29/2017 PACO CORDERO MD, Ot L97.222 NON-PRESSURE CHRONIC ULCER OF LEFT CALF 08/10/2017 PACO CORDERO MD, Ot 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 [place]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 [facility] 08/10/2017 PACO CORDERO MD Ot 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 08/10/2017 PACO CORDERO MD Ot L03.116 CELLULITIS OF LEFT LOWER LIMB 08/10/2017 PACO CORDERO MD, Ot L97.222 NON-PRESSURE CHRONIC ULCER OF LEFT CALF 08/22/2017 PACO CORDERO MD, Ot 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 [place]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 [facility] 08/22/2017 PACO CORDERO MD, Ot 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 08/22/2017 PACO CORDERO MD, Ot L97.222 NON-PRESSURE CHRONIC ULCER OF LEFT CALF 08/25/2017 PACO CORDERO MD, Ot 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 [place]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 [facility] 08/25/2017 PACO CORDERO MD, Ot 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 08/25/2017 PACO CORDERO MD, Ot L97.222 NON-PRESSURE CHRONIC ULCER OF LEFT CALF 08/31/2017 Rashaun Pan W 250.00 DIABETES MELLITUS WITHOUT MENTION OF COMPLICATION, TYPE II OR UNSPECIFIED TYPE, NOT STATED UNCONTROLLED 08/31/2017 Rashaun Pan A 296.34 08/31/2017 Rashaun Pan W 300.02 GENERALIZED ANXIETY DISORDER 08/31/2017 Rashaun Pan W 401.0 MALIGNANT ESSENTIAL HYPERTENSION 08/31/2017 Rashaun Pan W 714.0 RHEUMATOID ARTHRITIS 08/31/2017 Rashaun Pan W E11.9 TYPE 2 DIABETES MELLITUS WITHOUT COMPLICATIONS 08/31/2017 Rashaun Pan A F33.3 MAJOR DEPRESSV DISORDER, RECURRENT, SEVERE W PSYCH SYMPTOMS 08/31/2017 Rashaun Pan W F41.1 GENERALIZED ANXIETY DISORDER 08/31/2017 Rashaun Pan W I10 ESSENTIAL (PRIMARY) HYPERTENSION 08/31/2017 Rashaun Pan W M06.9 RHEUMATOID ARTHRITIS, UNSPECIFIED Procedures There is no data. Results Test Result Range Bacteria identification in isolate by anaerobe culture - 04/02/17 11:07 Bacteria identification in isolate by anaerobe culture NOANA NRG Gram stain microscopy - 04/02/17 11:07 GRAM STAIN RESULT RARE WBC, NO BACTERIA NRG Bacteria identification in wound by culture - 04/02/17 11:07 Bacteria identification in wound by culture [id number] NRG FREE TEXT EXTERNAL SENSITIVITY REPORTED 04/10/17 10:35 NRG QUANTITY OF GROWTH Moderate Growth NRG FREE TEXT ENTRY [address] [facility] NRG FREE TEXT ENTRY 3 LAB FOR SENSITIVITY TESTING 04/04/17. NRG Bacterial susceptibility panel - 04/02/17 11:07 Oxacillin susceptibility test by minimum inhibitory concentration < = NRG Gentamicin susceptibility test by minimum inhibitory concentration < = NRG Clindamycin susceptibility test by minimum inhibitory concentration <= NRG Erythromycin susceptibility test by minimum inhibitory concentration <= NRG Trimethoprim/sulfamethoxazole susceptibility test by minimum inhibitoryconcentration <= NRG Vancomycin susceptibility test by minimum inhibitory concentration < = NRG Levofloxacin susceptibility test by minimum inhibitory concentration <= NRG Rifampin susceptibility test by minimum inhibitory concentration <= NRG Tetracycline susceptibility test by minimum inhibitory concentration <= NRG Rapid Drug Screen,Medical - 08/21/17 10:16 Amphetamine NEGATIVE NEGATIVE Barbiturates NEGATIVE NEGATIVE Benzodiazepines POSITIVE NEGATIVE Cocaine NEGATIVE NEGATIVE Marijuana NEGATIVE NEGATIVE Methylenedioxymethamphetamine NEGATIVE NEGATIVE Opiates NEGATIVE NEGATIVE Oxycodone NEGATIVE NEGATIVE Phencyclidine NEGATIVE NEGATIVE Propoxyphene NEGATIVE NEGATIVE Tricyclic Antidepressant NEGATIVE NEGATIVE Urinalysis - 08/21/17 10:16 Icotest N/A Negative Urine Volume Urine Volume Insufficient (<10mL) May Affect Microscopic Exam Urine Yeast No Yeast present Urine-Appearance Cloudy Clear Urine-Bacteria Trace Urine-Bilirubin Negative Negative Urine-Blood 1+ Negative Urine-Color Yellow Colorless-Lt. Yellow Urine-Epithelial Cells 0-5/HPF Urine-Glucose 2+ Negative Urine-Ketones Trace Negative Urine-Leukocytes 3+ Negative Urine-Mucus 1+ Urine-Nitrite Negative Negative Urine-Other Culture to follow Urine-pH 5.5 5-8.5 Urine-Protein Trace Negative Urine-RBC 0-2/HPF Urine-Specific [place] 1.025 1.000-1.030 Urine-WBC TNTC Urobilinogen 0.2 0.2-1.0 MRSA Screen - 08/21/17 10:16 FINAL CULTURE RESULTS MRSA Negative Nasal Culture MEDIA PLATED Setup at 11:42 on 08/21/2017 Urine Culture - 08/21/17 16:52 PRELIM CULTURE RESULTS 50,000-100,000 Gram Negative HERMILA / ID to [id number] Gram Positive Mixed Zohra Probable Skin Contaminant CULTURE SOURCE VOID Sensi - 08/21/17 16:52 FINAL CULTURE RESULTS Pseudomonas aeruginosa (Isolate 1) Ampicillin/Sulbactam >16/8 Ampicillin >16 Amoxicillin/K Clavulanate >16/8 Ceftriaxone <=8 Ciprofloxacin <=1 Nitrofurantoin >64 Gentamicin <=4 Levofloxacin <=2 Trimethoprim/ Sulfamethoxazole >2/38 Tetracycline >8 Amikacin <=16 Aztreonam <=8 Ceftazidime 4 Ceftazidime/K Clavulanate 2 Cephalothin >16 Cefotaxime 32 Cefotaxime/K Clavulanate >4 Cefoxitin >16 Cefazolin >16 Cefepime <=8 Cefuroxime >16 Ertapenem >4 Imipenem <=4 Meropenem <=4 Piperacillin/Tazobactam <=16 Piperacillin <=16 Tigecycline N/R Tobramycin <=4 CBC with Auto Diff - 08/22/17 05:00 Baso% 0.20 % 0.00-2.50 Eos 0.0 K/uL 0.0-0.7 Eos% 0.2 % 0.0-7.0 Hct 35.3 % 36.0-46.0 Hgb 11.9 g/dL 13.0-15.0 Lym 1.27 K/uL 0.60-3.40 Lym% 26.0 % 10.0-50.0 MCH 32.3 pg 27.0-31.0 MCHC 33.7 g/dL 32.0-36.0 MCV 95.9 fL 80.0-97.0 [place]% 16.6 % 0.0-12.0 MPV 10.0 fL 7.4-10.0 [place]% 57.0 % 37.0-80.0 Plt 76 K/uL 150-400 RBC 3.68 M/uL 3.60-5.00 RDW 14.4 % 11.6-14.8 WBC 4.89 K/uL 5.00-10.00 [place] 2.79 K/uL 2.00-6.90 [place] 0.8 K/uL 0.0-0.9 Baso 0.0 K/uL 0.0-0.2 Valproic Acid - 08/31/17 05:00 Valproic Acid 12.0 ug/mL 55.0-105.0 Encounters ACCT No. Visit Date/Time Discharge Status Pt. Type Provider Facility Loc./Unit Complaint [id number] 09/22/2015 10:05:52 09/22/2015 23:59:59 CLS Outpatient ChanceDean caldera [id number] 07/14/2015 10:01:32 07/14/2015 23:59:59 CLS Outpatient ChanceDean caldera [id number] 03/25/2015 09:59:49 03/25/2015 23:59:59 CLS Outpatient ChanceDean caldera [id number] 02/08/2015 22:22:58 02/08/2015 23:59:59 CLS Outpatient ChanceDean caldera [id number] 02/08/2015 21:34:46 02/08/2015 23:59:59 CLS Outpatient ChanceDean caldera [id number] 10/27/2014 11:49:30 10/27/2014 23:59:59 CLS Outpatient ChanceDean caldera [id number] 09/24/2014 09:00:34 09/24/2014 23:59:59 CLS Outpatient ChanceDean caldera [id number] 07/14/2014 09:02:52 07/14/2014 23:59:59 CLS Outpatient ChanceDean caldera [id number] 06/18/2014 14:54:06 06/18/2014 23:59:59 CLS Outpatient ChanceDean caldera [id number] 05/12/2014 09:04:31 05/12/2014 23:59:59 CLS Outpatient ChanceDean caldera [id number] 03/17/2014 08:58:19 03/17/2014 23:59:59 CLS Outpatient ChanceDean caldera [id number] 01/26/2014 10:32:13 01/26/2014 23:59:59 CLS Outpatient ChanceDean caldera [id number] 08/21/2017 00:00:00 08/31/2017 09:00:00 DIS Inpatient Jessica Panhaib [facility] [id number] 08/21/2017 13:06:14 Document Registration [id number] 04/23/2017 09:00:00 04/23/2017 23:59:59 CLS Outpatient PACO CORDERO MD [facility] [id number] 04/16/2017 09:00:00 04/16/2017 23:59:59 CLS Outpatient PACO CORDERO MD [facility] [id number] 04/09/2017 08:53:00 04/09/2017 23:59:59 CLS Outpatient PACO CORDERO MD [facility] [id number] 04/02/2017 09:46:00 04/02/2017 23:59:59 CLS Outpatient PACO CORDERO MD [facility] [id number] 08/21/2017 00:00:00 Document Registration
--- OUTSIDE RECORDS SUMMARY | 2017-10-31 09:26 | XMS REPORT ---
Author Author Dean Fletcher [facility] Address [address] [place], [place] [address] Care Team Providers Care Retirement Specialist Name Role Phone Dean Fletcher PCP Unavailable [...] ever smoked Lives with spouse lives in correction History of Procedures Not available. Results Summary [...] Date Medicare Part A Medicare Part A [id number] N/A [facility] [id number] N/A Medicare Part B Medicare Of [place] [id number] N/A [employer] Financial Assistance [facility] Financial Nani 50 Percent Monday, July 02, [...] 01/26/2014 Office visit Dean Fletcher DO 05/19/2012 [facility] Johann Forrest MD 03/11/2012 [facility] Johann Forrest MD 01/17/2012 [facility] Johann Forrest MD
--- OUTSIDE RECORDS SUMMARY | 2017-10-31 09:26 | XMS REPORT | CCD ---
Author Author KAVITHA JO Organization Unknown Address [address] [facility] [address] [place] [address] Care Team Providers Care Powder Worker Tnt Name Role Phone ESTHER CHANEL DO Attphys CHANELNUR DO Prisurg Allergies Allergy Code Allergy Type Reaction Status SULFA (sulfonamide) 0 Drug allergy Active Active Medications Unknown or Not Available. Problems Unknown or Not Available. Procedures Procedure Code Procedure Type Date CT HEAD W/O CONTRAST 704152179 SNOMED CT 10/27/2016 COMPREHENSIVE METABOLIC PANEL 669262503 SNOMED CT 2016 CBC W/ AUTO DIFF (RFLX MAN DIFF IF IND) 2597688 SNOMED CT 10/27/2016 ^CBC W/ MANUAL DIFF [id number] SNOMED CT 10/27/2016 Results COMPREHENSIVE METABOLIC PANEL - Collect Date/Time: 10/27/2016 09:35 Test Name Code Test Result Test Units Test Ref Range GLUCOSE 2345-7 256 MG/DL L=70 H=100 SODIUM 2951-2 140 MEQ/L L=135 H=148 POTASSIUM 2823-3 4.1 MEQ/L L=3.5 H=5.3 CHLORIDE 2075-0 105 MEQ/L L=96 H=110 CO2 2028-9 21 MEQ/L L=22 H=29 BUN 3094-0 16 MG/DL L=8 H=22 CREATININE 2160-0 0.9 MG/DL L=0.6 H=1.6 SGOT/AST 1920-8 15 IU/L L=10 H=40 SGPT/ALT 1742-6 17 IU/L L=8 H=54 ALK PHOS 6768-6 90 IU/L L=35 H=115 TOTAL PROTEIN 2885-2 6.9 G/DL L=5.5 H=8.5 ALBUMIN 1751-7 4.1 G/DL L=3.1 H=5.4 TOTAL BILI 1975-2 0.7 MG/DL L=0.0 H=1.5 CALCIUM 13545-2 9.5 MG/DL L=8.2 H=10.6 AGE 86 yrs GFR NonAA 59 GFR AA 72 eGFR 59 mL/min/1.7 eGFR AA* >60 N/A CBC W/ AUTO DIFF (RFLX MAN DIFF IF IND) - Collect Date/Time: 10/27/2016 09:35 Test Name Code Test Result Test Units Test Ref Range WBC 65504-4 2.8 TH/CMM L=4.5 H=10.8 RBC 789-8 3.94 ML/CMM L=4.20 H=5.40 HGB 718-7 12.4 G/DL L=12.0 H=16.0 HCT 4544-3 36.1 % L=37.0 H=47.0 MCV 92 FL L=81 H=99 MCH 31.5 PG L=27.0 H=33.0 MCHC 34.3 G/DL L=31.0 H=36.0 RDW SD 47 FL L=36 H=50 RDW CV 14.0 % L=0.0 H=14.8 MPV 9.4 FL L=9.3 H=12.5 PLT 777-3 93 TH/CMM L=130 H=440 NRBC# 0.00 TH/CMM L=0.00 H=0.00 NRBC% 0.0 /100WBC L=0.0 H=2.0 %NEUT 70.3 % %LYMP 18.1 % %MONO 8.7 % %EOS 0.4 % %BASO 0.0 % #NEUT 1.94 TH/CMM L=2.10 H=8.20 #LYMP 0.50 TH/CMM L=0.90 H=5.20 #MONO 0.24 TH/CMM L=0.16 H=1.00 #EOS 0.01 TH/CMM L=0.00 H=0.80 #BASO 0.00 TH/CMM L=0.00 H=0.20 SEGS 75 % BANDS 2 % LYMPHS 19 % MONOS 4 % MANUAL DIFF SEE BELOW N/A MICRO 1+ N/A MACRO 1+ N/A ANISO 2+ N/A Encounters Encounter Diagnosis Diagnosis Code Start Date Paresthesia of skin R202 10/27/2016 Function Status Unknown or Not Available. History of Immunizations Unknown or Not Available. Plan of Treatment Unknown or Not Available. Social History Smoking Status Code Start Date End Date Never smoker [id number] Vital Signs Unknown or Not Available. Function Status Unknown or Not Available. Goals Unknown or Not Available. ASSESSMENTS Unknown or Not Available. Health Concerns Section Unknown or Not Available.
[2017-10-31 10:38] LABS: BILIRUBIN,URINE NEGATIVE (NEGATIVE); CLARITY,URINE CLEAR; COLOR,URINE YELLOW; GLUCOSE, URINE (UA) 4+ (NEGATIVE); KETONES,URINE NEGATIVE (NEGATIVE); LEUKOCYTE ESTERASE ,URINE NEGATIVE (NEGATIVE); NITRITE,URINE NEGATIVE (NEGATIVE); PH,URINE 6 (5-9); PROTEIN,URINE NEGATIVE (NEGATIVE); UROBILINOGEN,URINE NORMAL (NORMAL)
[2017-10-31 10:40] LABS: BASOPHILS % (AUTO) 0 % (0-10); EOSINOPHILS % (AUTO) 0 % (0-10); HEMATOCRIT 36 % (35-52); HEMOGLOBIN 12.5 G/DL (11.5-16.0); LYMPHOCYTES # (AUTO) 0.3 X 10^3 (1.0-4.0); LYMPHOCYTES % (AUTO) 3 % (12-44); MEAN CORPUSCULAR HEMOGLOBIN 33 PG (25-34); MEAN CORPUSCULAR HGB CONC 34 G/DL (32-36); MEAN CORPUSCULAR VOLUME 96 FL (80-99); MONOCYTES % (AUTO) 10 % (0-12); NEUTROPHILS # (AUTO) 8.7 X 10^3 (1.8-7.8); NEUTROPHILS % (AUTO) 87 % (42-75); PLATELET COUNT 80 10^3/uL (130-400); RED BLOOD COUNT 3.77 10^6/uL (4.35-5.85); RED CELL DISTRIBUTION WIDTH 15.1 % (10.0-14.5)
[2017-10-31 10:41] LABS: PROTHROMBIN TIME PATIENT 13.5 SEC (12.2-14.7)
--- NOTE | 2017-10-31 10:42 | ED General ---
General Chief Complaint: Trauma-Non Activation Stated Complaint: LT SIDE LEANING Nursing Triage Note: PT TO ED PER [place], PT STATES FELL AT [facility] Y[place] 10-30-17. PT IS LEANING TO LEFT AND GRABBING AT THINGS, PT STATES FEELS POORLY, HAS SL ABD PAIN ON L LOWER ABD. PT IS UNABLE TO PREFORM A NEURO EXAM AT THIS TIME D/T WEAKNESS AND DEMENTIA Nursing Sepsis Screen: No Definite Risk Source of Information: Patient, Family, Residential Records Exam Limitations: No Limitations History of Present Illness Date Seen by Provider: October 31, 2017 Time Seen by Provider: 10:37 Initial Comments To ER from care home with reports of a altered mental status. Patient did fall at the care home yesterday. She was not evaluated at that time. This was an unwitnessed fall and it's unclear whether or not she hit her head. She did report to the RN that she has lower left abdominal pain. More confused than baseline. Timing/Duration: 1-2 Days Severity: Moderate Allergies and Home Medications Allergies Coded Allergies: No Known Drug Allergies (Unverified , 10/31/17) Patient Home Medication List Home Medication List Reviewed: Yes Review of Systems Constitutional: see HPI EENTM: see HPI Respiratory: no symptoms reported Cardiovascular: no symptoms reported Genitourinary: no symptoms reported Musculoskeletal: no symptoms reported Skin: no symptoms reported Psychiatric/Neurological: No Symptoms Reported Hematologic/Lymphatic: No Symptoms Reported Immunological/Allergic: no symptoms reported Past Wdnfygy-Fkbjhp-Weficv Hx Patient Social History Alcohol Use: Denies Use Recreational Drug Use: No Smoking Status: Never a Smoker Recent Foreign Travel: No Contact w/Someone Who Travel: No Recent Infectious Disease Expo: No Recent Hopitalizations: No Past Medical History Surgeries: Yes Abdominal Respiratory: No Cardiac: Yes Neurological: Yes Dementia Genitourinary: No Gastrointestinal: No Musculoskeletal: No Endocrine: Yes Diabetes, Non-Insulin dep Integumentary: No Physical Exam Vital Signs Vital Signs - First Documented Capillary Refill : Less Than 3 Seconds General Appearance: No Apparent Distress, WD/WN, Anxious Eyes: Bilateral Eye Normal Inspection, Bilateral Eye PERRL HEENT: PERRL/EOMI, TMs Normal Neck: Full Range of Motion, Normal Inspection Respiratory: Lungs Clear, Normal Breath Sounds, No Accessory Muscle Use, No Respiratory Distress Cardiovascular: Regular Rate, Rhythm, Normal Peripheral Pulses Gastrointestinal: Normal Bowel Sounds, Non Tender, Soft, Other (Normal bowel sounds and no tenderness upon palpation) Extremity: Normal Capillary Refill, Normal Inspection, Pedal Edema (2+ bilateral lower extremities), Other (She does move all extremities) Neurologic/Psychiatric: Alert, Other (Disoriented. Granddaughter is present who knows the patient very well. States that normally patient would recognize her, but today patient does not recognize her.) Skin: Normal Color, Warm/Dry Progress/Results/Core Measures Suspected Sepsis Recent Fever Within 48 Hours: No Infection Criteria Present: None New/Unexplained Altered Menta: No Sepsis Screen: No Definite Risk SIRS Temperature:98.1 Pulse: 92 Respiratory Rate: 18 Laboratory Tests 10/31/17 09:45: White Blood Count 10.0 Blood Pressure 118 /61 Mean: 80 Laboratory Tests 10/31/17 09:45: Creatinine 0.82, INR Comment 1.0, Platelet Count 80L, Total Bilirubin 0.9 Results/Orders Lab Results Laboratory Tests Test 10/31/17 09:45 Range/Units White Blood Count 10.0 4.3-11.0 10^3/uL Red Blood Count 3.77 L 4.35-5.85 10^6/uL Hemoglobin 12.5 11.5-16.0 G/DL Hematocrit 36 35-52 % Mean Corpuscular Volume 96 80-99 FL Mean Corpuscular Hemoglobin 33 25-34 PG Mean Corpuscular Hemoglobin Concent 34 32-36 G/DL Red Cell Distribution Width 15.1 H 10.0-14.5 % Platelet Count 80 L 130-400 10^3/uL Mean Platelet Volume 10.0 7.4-10.4 FL Neutrophils (%) (Auto) 87 H 42-75 % Lymphocytes (%) (Auto) 3 L 12-44 % Monocytes (%) (Auto) 10 0-12 % Eosinophils (%) (Auto) 0 0-10 % Basophils (%) (Auto) 0 0-10 % Neutrophils # (Auto) 8.7 H 1.8-7.8 X 10^3 Lymphocytes # (Auto) 0.3 L 1.0-4.0 X 10^3 Monocytes # (Auto) 1.0 0.0-1.0 X 10^3 Eosinophils # (Auto) 0.0 0.0-0.3 10^3/uL Basophils # (Auto) 0.0 0.0-0.1 10^3/uL Neutrophils % (Manual) 85 % Lymphocytes % (Manual) 5 % Monocytes % (Manual) 7 % Eosinophils % (Manual) 0 % Basophils % (Manual) 0 % Band Neutrophils 3 % Elliptocytes SLIGHT Prothrombin Time 13.5 12.2-14.7 SEC INR Comment 1.0 0.8-1.4 Urine Color YELLOW Urine Clarity CLEAR Urine pH 6 5-9 Urine Specific Susan 1.015 L 1.016-1.022 Urine Protein NEGATIVE NEGATIVE Urine Glucose (UA) 4+ H NEGATIVE Urine Ketones NEGATIVE NEGATIVE Urine Nitrite NEGATIVE NEGATIVE Urine Bilirubin NEGATIVE NEGATIVE Urine Urobilinogen NORMAL NORMAL MG/DL Urine Leukocyte Esterase NEGATIVE NEGATIVE Urine RBC (Auto) NEGATIVE NEGATIVE Urine RBC NONE /HPF Urine WBC RARE /HPF Urine Squamous Epithelial Cells 0-2 /HPF Urine Crystals NONE /LPF Urine Bacteria NEGATIVE /HPF Urine Casts NONE /LPF Urine Mucus NEGATIVE /LPF Urine Culture Indicated NO Sodium Level 136 135-145 MMOL/L Potassium Level 3.7 3.6-5.0 MMOL/L Chloride Level 99 98-107 MMOL/L Carbon Dioxide Level 25 21-32 MMOL/L Anion Gap 12 5-14 MMOL/L Blood Urea Nitrogen 18 7-18 MG/DL Creatinine 0.82 0.60-1.30 MG/DL Estimat Glomerular Filtration Rate > 60 BUN/Creatinine Ratio 22 Glucose Level 380 H 70-105 MG/DL Calcium Level 9.3 8.5-10.1 MG/DL Total Bilirubin 0.9 0.1-1.0 MG/DL Aspartate Amino Transf (AST/SGOT) 13 5-34 U/L Alanine Aminotransferase (ALT/SGPT) 13 0-55 U/L Alkaline Phosphatase 63 40-136 U/L Total Protein 6.9 6.4-8.2 GM/DL Albumin 4.0 3.2-4.5 GM/DL My Orders Orders - ANGELICA HERNANDEZ RD SCIENTIST Cbc With Automated Diff (10/31/17 10:31) Comprehensive Metabolic Panel (10/31/17 10:31) Protime With Inr (10/31/17 10:31) Ua Culture If Indicated (10/31/17 10:31) Ekg Tracing (10/31/17 10:31) Chest 1 View, Ap/Pa Only (10/31/17 10:31) Ct Head Wo (10/31/17 10:31) Lt-Xyupvdo-Qvdusv (Order) (10/31/17 10:31) Manual Differential (10/31/17 09:45) Ns Iv 500 Ml (Sodium Chloride 0.9%) (10/31/17 11:00) Alprazolam Tablet (Xanax Tablet) (10/31/17 12:00) Valproic Acid (10/31/17 12:13) Medications Given in ED Current Medications Medications Dose Ordered Sig/Kaylynn Route Start Time Stop Time Status Last Admin Dose Admin Alprazolam 0.25 mg ONCE ONCE PO 10/31/17 12:00 10/31/17 12:01 DC 10/31/17 12:11 0.25 MG Vital Signs/I&O 10/31/17 10/31/17 10/31/17 09:15 09:15 12:17 Temp 98.1 98.1 Pulse 92 92 107 Resp 18 B/P (MAP) 118/61 (80) 118/61 (80) 122/76 Pulse Ox 99 99 96 Capillary Refill : Less Than 3 Seconds Blood Pressure Mean: 80 Diagnostic Imaging Diagonstic Imaging: CT Comments NAME: PRADIP BOUDREAUX MED REC#: [id number] PT STATUS: REG ER : 1930 PHYSICIAN: ANGELICA HERNANDEZ APRN ADMIT DATE: 10/31/17/ER Draft Date of Exam:10/31/17 CT HEAD WO PROCEDURE: CT head without contrast. TECHNIQUE: Multiple contiguous axial images were obtained through the brain without the use of intravenous contrast. INDICATION: Fall and altered mental status. TIME OF EXAM: 10:47 a.m. No prior studies are available for comparison. The ventricles and sulci are consistent with patient's age. Moderate periventricular hypodensity is noted consistent with senescent change. No sulcal effacement is identified. There is no midline shift. No acute intra-axial or extra-axial hemorrhage is detected. The cisterns are patent. Visualized paranasal sinuses are clear. IMPRESSION: Chronic and senescent changes. No acute intracranial process is detected. Dictated on workstation # [id number] Dict: 10/31/17 1058 Trans: 10/31/17 1105 [facility] [id number] Interpreted by: ERIN GILLESPIE MD Electronically signed by: NAME: PRADIP BOUDREAUX [facility] REC#: [id number] PT STATUS: REG ER : 1930 PHYSICIAN: ANGELICA HERNANDEZ APRN ADMIT DATE: 10/31/17/ER Draft Date of Exam:10/31/17 CHEST 1 VIEW, AP/PA ONLY INDICATION: Fall. TIME OF EXAM: 11:20 AM No prior studies are available for comparison. FINDINGS: The heart size is normal. There is calcified granuloma in the right base. No infiltrates are seen. There is no evidence of congestive failure. No effusion or pneumothorax is identified. IMPRESSION: No acute cardiopulmonary process is detected. Dictated on workstation # [id number] Dict: 10/31/17 1126 Trans: 10/31/17 [id number] Interpreted by: ERIN GILLESPIE MD Electronically signed by: Departure Communication (Admissions) 1147- I did discuss the case with Dr. Bib Ospina, patient's primary care provider. He states the patient has been declining cognitively over the past year. [facility] [place] [facility] months ago. He agrees to discharge back to the care home, follow-up with her in the clinic this week. Impression Primary Impression: Altered mental status Disposition: 01 HOME, SELF-CARE Condition: Stable Departure-Patient Inst. Decision time for Depature: 11:40 Referrals: BIB OSPINA MD (PCP/Family) Primary Care Physician Patient Instructions: NO INSTRUCTIONS GIVEN Add. Discharge Instructions: 1. Return to ER for any concerns or worsening symptoms. Please call Dr. Ospina' s office today and make an appointment to be seen for follow-up later this week. All discharge instructions reviewed with patient and/or family. Voiced understanding. Copy Copies To 1: BIB OSPINA MD, PETER J APRN October 31, 2017 10:42
[2017-10-31 10:51] LABS: ALANINE AMINOTRANSFERASE 13 U/L (0-55); ALKALINE PHOSPHATASE 63 U/L (40-136); BILIRUBIN,TOTAL 0.9 MG/DL (0.1-1.0); BUN/CREATININE RATIO 22; CALCIUM 9.3 MG/DL (8.5-10.1); CARBON DIOXIDE 25 MMOL/L (21-32); CHLORIDE 99 MMOL/L (98-107); CREATININE SERUM 0.82 MG/DL (0.60-1.30); GFR ESTIMATED > 60; GLUCOSE 380 MG/DL (70-105); POTASSIUM 3.7 MMOL/L (3.6-5.0); SODIUM 136 MMOL/L (135-145); TOTAL PROTEIN 6.9 GM/DL (6.4-8.2)
[2017-10-31] MEDS ORDERED: NS IV 500 ML 500 ML IV SCH (11:00)
[2017-10-31 11:02] LABS: BACTERIA,URINE NEGATIVE /HPF; SQUAMOUS EPITHELIAL CELL,UR 0-2 /HPF; WBC,URINE RARE /HPF
--- NOTE | 2017-10-31 11:05 | Diagnostic Imaging Report ---
PROCEDURE: CT head without contrast. TECHNIQUE: Multiple contiguous axial images were obtained through the brain without the use of intravenous contrast. INDICATION: Fall and altered mental status. TIME OF EXAM: 10:47 a.m. No prior studies are available for comparison. The ventricles and sulci are consistent with patient's age. Moderate periventricular hypodensity is noted consistent with senescent change. No sulcal effacement is identified. There is no midline shift. No acute intra-axial or extra-axial hemorrhage is detected. The cisterns are patent. Visualized paranasal sinuses are clear. IMPRESSION: Chronic and senescent changes. No acute intracranial process is detected. Dictated by: Dictated on workstation # [id number]
--- NOTE | 2017-10-31 11:29 | Diagnostic Imaging Report ---
INDICATION: Fall. TIME OF EXAM: 11:20 AM No prior studies are available for comparison. FINDINGS: The heart size is normal. There is calcified granuloma in the right base. No infiltrates are seen. There is no evidence of congestive failure. No effusion or pneumothorax is identified. IMPRESSION: No acute cardiopulmonary process is detected. Dictated by: Dictated on workstation # [id number]
[2017-10-31 11:34] LABS: BAND NEUTROPHILS 3 %; BASOPHILS % (MANUAL) 0 %; ELLIPT/OVALOCYTES SLIGHT; EOSINOPHILS % (MANUAL) 0 %; LYMPHOCYTES % (MANUAL) 5 %; MONOCYTES % (MANUAL) 7 %; NEUTROPHILS % (MANUAL) 85 %
[2017-10-31] MEDS ORDERED: ALPRAZolam 0.25 MG (XANAX) TAB PO ONE (12:00)
[2017-10-31 12:17] VITALS: BP 122/76
== END 2017-10-31 12:49 | disposition home or self-care (01) ==
LOC: EDUNIT# 09:14 → ER 09:15
DX: R41.82 Altered mental status, unspecified (principal); F03.90 Unspecified dementia, unspecified severity, without behavioral disturbance, psychotic disturbance, mood disturbance, and anxiety; E11.9 Type 2 diabetes mellitus without complications; Z91.81 History of falling
CPT/HCPCS: 36415; 70450; 71045; 80053; 80164; 81000; 85007; 85027; 85610; 93005; 96360

== ENCOUNTER 2017-11-01 18:20 | Emergency (ER) | payer MEDICARE, MEDICAID ==
[~2017-11-01] VITALS: Ht 167.6 cm; Wt 70.5 kg
--- OUTSIDE RECORDS SUMMARY | 2017-11-01 18:30 | XMS REPORT | Continuity of Care Document ---
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 04/10/2017 PACO CORDERO MD Ot L03.116 CELLULITIS OF LEFT LOWER LIMB 04/10/2017 PACO CORDERO MD Ot L97.222 NON-PRESSURE CHRONIC ULCER OF LEFT CALF 04/25/2017 PACO CORDERO MD Ot 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 04/25/2017 PACO CORDERO MD Ot 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 04/25/2017 PACO CORDERO MD Ot L97.222 NON-PRESSURE CHRONIC ULCER OF LEFT CALF 04/25/2017 PACO CRODERO MD, Ot 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 04/25/2017 PACO CORDERO MD, Ot 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 04/25/2017 PACO CORDERO MD Ot L03.116 CELLULITIS OF LEFT LOWER LIMB 04/25/2017 PACO CORDERO MD, Ot L97.222 NON-PRESSURE CHRONIC ULCER OF LEFT CALF 05/03/2017 PACO CORDERO MD Ot 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 05/03/2017 PACO CORDERO MD Ot 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 05/03/2017 PACO CORDERO MD Ot L97.222 NON-PRESSURE CHRONIC ULCER OF LEFT CALF 05/09/2017 PACO CORDERO MD Ot 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 05/09/2017 PACO CORDERO MD Ot 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 05/09/2017 PACO CORDERO MD Ot L97.222 NON-PRESSURE CHRONIC ULCER OF LEFT CALF 05/15/2017 PACO CORDERO MD Ot 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 05/15/2017 PACO CORDERO MD Ot 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 05/15/2017 PACO CORDERO MD Ot L97.222 NON-PRESSURE CHRONIC ULCER OF LEFT CALF 05/29/2017 PACO CORDERO MD Ot 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 05/29/2017 PACO CORDERO MD Ot 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 05/29/2017 PACO CORDERO MD Ot L97.222 NON-PRESSURE CHRONIC ULCER OF LEFT CALF 08/10/2017 PACO CORDERO MD Ot 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 08/10/2017 PACO CORDERO MD Ot 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 08/10/2017 PACO CORDERO MD Ot L03.116 CELLULITIS OF LEFT LOWER LIMB 08/10/2017 PACO CORDERO MD, Ot L97.222 NON-PRESSURE CHRONIC ULCER OF LEFT CALF 08/22/2017 PACO CORDERO MD, Ot 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 08/22/2017 PACO CORDERO MD, Ot 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 08/22/2017 PACO CORDERO MD, Ot L97.222 NON-PRESSURE CHRONIC ULCER OF LEFT CALF 08/25/2017 PACO CORDERO MD Ot 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 08/25/2017 PACO CORDERO MD Ot 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 08/25/2017 PACO CORDERO MD Ot L97.222 NON-PRESSURE CHRONIC [...] Rashaun Pan W M06.9 RHEUMATOID ARTHRITIS, UNSPECIFIED 11/01/2017 PACO CORDERO MD Ot 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 11/01/2017 PACO CORDERO MD Ot 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 11/01/2017 PACO CORDERO MD Ot L03.116 CELLULITIS OF LEFT LOWER LIMB 11/01/2017 PACO CORDERO MD Ot L97.222 NON-PRESSURE CHRONIC ULCER OF LEFT CALF 11/01/2017 PACO CORDERO MD Ot 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 11/01/2017 PACO CORDERO MD Ot 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 11/01/2017 PACO CORDERO MD, Ot L97.222 NON-PRESSURE CHRONIC ULCER OF LEFT CALF 11/01/2017 PACO CORDERO MD, Ot 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 Results Test Result Range Bacteria identification in isolate by anaerobe culture - 04/02/17 11:07 Bacteria identification in isolate by anaerobe culture NOANA NRG Gram stain microscopy - 04/02/17 11:07 GRAM STAIN RESULT RARE WBC, NO BACTERIA NRG Bacteria identification in wound by culture - 04/02/17 11:07 Bacteria identification in wound by culture [id number] NRG FREE TEXT EXTERNAL SENSITIVITY REPORTED 04/10/17 10:35 NRG QUANTITY OF GROWTH Moderate Growth NRG FREE TEXT ENTRY 2 TESTING BY [facility] NRG FREE TEXT ENTRY 3 LAB [...] 5-8.5 Urine-Protein Trace Negative Urine-RBC 0-2/HPF Urine-Specific Lovell 1.025 1.000-1.030 Urine-WBC TNTC Urobilinogen 0.2 0.2-1.0 MRSA Screen - 08/21/17 10:16 FINAL CULTURE RESULTS MRSA Negative Nasal Culture MEDIA PLATED Setup at 11:42 on 08/21/2017 Urine Culture - 08/21/17 16:52 PRELIM CULTURE RESULTS 50,000-100,000 Gram Negative HERMILA / ID to [id number] Gram Positive Mixed Zohra Probable Skin Contaminant [...] 33.7 g/dL 32.0-36.0 MCV 95.9 fL 80.0-97.0 Pennington% 16.6 % 0.0-12.0 MPV 10.0 fL 7.4-10.0 Kwaku% 57.0 % 37.0-80.0 Plt 76 K/uL 150-400 RBC 3.68 M/uL 3.60-5.00 RDW 14.4 % 11.6-14.8 WBC 4.89 K/uL 5.00-10.00 Kwaku 2.79 K/uL 2.00-6.90 Pennington 0.8 K/uL 0.0-0.9 Baso 0.0 K/uL 0.0-0.2 Valproic Acid - 08/31/17 05:00 Valproic Acid 12.0 ug/mL 55.0-105.0 Complete blood count (CBC) with automated white blood cell (WBC) differential - 10/31/17 09:45 Blood leukocytes automated count (number/volume) 10.0 10*3/uL 4.3-11.0 Blood erythrocytes automated count (number/volume) 3.77 10*6/uL 4.35-5.85 Venous blood hemoglobin measurement (mass/volume) 12.5 g/dL 11.5-16.0 Blood hematocrit (volume fraction) 36 % 35-52 Automated erythrocyte mean corpuscular volume 96 [foz_us] 80-99 Automated erythrocyte mean corpuscular hemoglobin (mass per erythrocyte) 33 pg 25-34 Automated erythrocyte mean corpuscular hemoglobin concentration measurement ( mass/volume) 34 g/dL 32-36 Automated erythrocyte distribution width ratio 15.1 % 10.0-14.5 Automated blood platelet count (count/volume) 80 10*3/uL 130-400 Automated blood platelet mean volume measurement 10.0 [foz_us] 7.4-10.4 Automated blood neutrophils/100 leukocytes 87 % 42-75 Automated blood lymphocytes/100 leukocytes 3 % 12-44 Blood monocytes/100 leukocytes 10 % 0-12 Automated blood eosinophils/100 leukocytes 0 % 0-10 Automated blood basophils/100 leukocytes 0 % 0-10 Blood neutrophils automated count (number/volume) 8.7 10*3 1.8-7.8 Blood lymphocytes automated count (number/volume) 0.3 10*3 1.0-4.0 Blood monocytes automated count (number/volume) 1.0 10*3 0.0-1.0 Automated eosinophil count 0.0 10*3/uL 0.0-0.3 Automated blood basophil count (count/volume) 0.0 10*3/uL 0.0-0.1 PT panel in platelet poor plasma by coagulation assay - 10/31/17 09:45 Prothrombin time (PT) in platelet poor plasma by coagulation assay 13.5 s 12.2-14.7 INR in platelet poor plasma or blood by coagulation assay 1.0 0.8-1.4 Comprehensive metabolic panel - 10/31/17 09:45 Serum or plasma sodium measurement (moles/volume) 136 mmol/L 135-145 Serum or plasma potassium measurement (moles/volume) 3.7 mmol/L 3.6-5.0 Serum or plasma chloride measurement (moles/volume) 99 mmol/L 98-107 Carbon dioxide 25 mmol/L 21-32 Serum or plasma anion gap determination (moles/volume) 12 mmol/L 5-14 Serum or plasma urea nitrogen measurement (mass/volume) 18 mg/dL 7-18 Serum or plasma creatinine measurement (mass/volume) 0.82 mg/dL 0.60-1.30 Serum or plasma urea nitrogen/creatinine mass ratio 22 NRG Serum or plasma creatinine measurement with calculation of estimated glomerular filtration rate > NRG Serum or plasma glucose measurement (mass/volume) 380 mg/dL 70-105 Serum or plasma calcium measurement (mass/volume) 9.3 mg/dL 8.5-10.1 Serum or plasma total bilirubin measurement (mass/volume) 0.9 mg/dL 0.1-1.0 Serum or plasma alkaline phosphatase measurement (enzymatic activity/volume) 63 U/L 40-136 Serum or plasma aspartate aminotransferase measurement (enzymatic activity/ volume) 13 U/L 5-34 Serum or plasma alanine aminotransferase measurement (enzymatic activity/volume ) 13 U/L 0-55 Serum or plasma protein measurement (mass/volume) 6.9 g/dL 6.4-8.2 Serum or plasma albumin measurement (mass/volume) 4.0 g/dL 3.2-4.5 Complete urinalysis with reflex to culture - 10/31/17 09:45 Urine color determination YELLOW NRG Urine clarity determination CLEAR NRG Urine pH measurement by test strip 6 5-9 Specific gravity of urine by test strip 1.015 1.016- 1.022 Urine protein assay by test strip, semi-quantitative NEGATIVE NEGATIVE Urine glucose detection by automated test strip 4+ NEGATIVE Erythrocytes detection in urine sediment by light microscopy NEGATIVE NEGATIVE Urine ketones detection by automated test strip NEGATIVE NEGATIVE Urine nitrite detection by test strip NEGATIVE NEGATIVE Urine total bilirubin detection by test strip NEGATIVE NEGATIVE Urine urobilinogen measurement by automated test strip (mass/volume) NORMAL NORMAL Urine leukocyte esterase detection by dipstick NEGATIVE NEGATIVE Automated urine sediment erythrocyte count by microscopy (number/high power field) NONE NRG Automated urine sediment leukocyte count by microscopy (number/high power field ) RARE NRG Bacteria detection in urine sediment by light microscopy NEGATIVE NRG Squamous epithelial cells detection in urine sediment by light microscopy 0-2 NRG Crystals detection in urine sediment by light microscopy NONE NRG Casts detection in urine sediment by light microscopy NONE NRG Mucus detection in urine sediment by light microscopy NEGATIVE NRG Complete urinalysis with reflex to culture NO NRG Blood manual differential performed detection - 10/31/17 09:45 Blood monocytes/100 leukocytes 7 % NRG Manual blood segmented neutrophils/100 leukocytes 85 % NRG Blood band neutrophils/100 leukocytes 3 % NRG Manual blood lymphocytes/100 leukocytes 5 % NRG Manual eosinophils/100 leukocytes in nose 0 % NRG Manual blood basophils/100 leukocytes 0 % NRG Blood ovalocytes detection by light microscopy SLIGHT NRG [id number] - 10/31/17 09:45 [id number] 29.8 ug/mL 50.0-100.0 Encounters ACCT No. Visit Date/Time Discharge Status Pt. Type Provider Facility Loc./Unit Complaint [id number] 09/22/2015 10:05:52 09/22/2015 23:59:59 CLS Outpatient [facility], [facility] [id number] 07/14/2015 10:01:32 07/14/2015 23:59:59 CLS Outpatient [facility] Dean [id number] 03/25/2015 09:59:49 03/25/2015 23:59:59 CLS Outpatient [facility] Dean [id number] 02/08/2015 22:22:58 02/08/2015 23:59:59 CLS Outpatient [facility] Dean [id number] 02/08/2015 21:34:46 02/08/2015 23:59:59 CLS Outpatient [facility] Dean [id number] 10/27/2014 11:49:30 10/27/2014 23:59:[id number] 09[facility]2014 09:00:34 09/24/2014 23[facility]59:[id number] 07/14/2014 09:02:52 07/14/2014 23:59:[id number] 06/18/2014 14:54:06 06/18/2014 23:59:59 CLS Outpatient [facility] [id number] 05/12/2014 09:04:31 05/12/2014 23:59:59 CLS Outpatient [facility] [id number] 03/17/2014 08:58:19 03/17/2014 23:59:59 CLS Outpatient [facility] Dean [id number] 01/26/2014 10:32:13 01/26/2014 23:59:59 CLS Outpatient [facility]a [id number] 08/21/2017 00:00:00 08/31/2017 09:00:00 [facility] [id number] 08/21/2017 13:06:14 Document Registration [id number] 10/31/2017 09:15:00 10/31/2017 12:49:00 DIS Emergency HERNANDEZANGELICA APRN [facility] ER LT SIDE LEANING [id number] 04/23/2017 09:00:00 04/23/2017 23:59:59 CLS Outpatient PACO CORDERO MD [facility] WOUNDCARE [id number] 04/16/2017 09:00:00 04/16/2017 23:59:59 CLS Outpatient PACO CORDERO MD [facility] WOUNDCARE [id number] 04/09/2017 08:53:00 04/09/2017 23:59:59 CLS Outpatient PACO CORDERO MD [facility] WOUND[facility] [id number] 04/02/2017 09:46:00 04/02/2017 23:59:59 CLS Outpatient PACO CORDERO MD [facility] WOUND[facility] [id number] 08/21/2017 00:00:00 Document Registration
[2017-11-01] MEDS ORDERED: inSUlin (REGULAR) HUMAN 1 UNIT/0.01 ML (CHARGE PER UNIT) SC STA (19:14)
--- NOTE | 2017-11-01 20:27 | ED General ---
General Chief Complaint: Unresponsive Stated Complaint: UNRESPONSIVE Nursing Triage Note: PATIENT HERE [facility], REPORTEDLY UNRESPONSIVE. HER NORMAL MENTATION IS AWAKE, ALERT AND TALKATIVE. TODAY SHE DID NTO KNOW WHO HER FAMILY MEMBERS WERE AND THIS EVENING BECAME UNRESPONSIVE. Nursing Sepsis Screen: No Definite Risk History of Present Illness Date Seen by Provider: November 02, 2017 Time Seen by Provider: 18:40 Initial Comments 87-year-old female brought by ambulance from [facility] due to unresponsive state. The staff report she is normally awake and talkative however today she's had more confusion and decreased responsiveness. She was evaluated here yesterday for a fall that occurred 2 days ago. These records were reviewed which showed no significant abnormalities. She was given 2 doses of Narcan by ambulance prior to arrival. She was given no narcotics today, she was given Xanax 0.25 mg this morning at 0800 for anxiety. She is a DO NOT RESUSCITATE. Her daughter was notified of her condition, she resides in [place] , and the family wished for her to be brought here for evaluation. She was started on Keflex today per Dr. Ospina for cellulitis in her right lower extremity. She had no falls, head injuries or other trauma today. Timing/Duration: 4-6 Hours Associated Systoms: Denies Symptoms Allergies and Home Medications Allergies Coded Allergies: No Known Drug Allergies (Unverified , 10/31/17) Patient Home Medication List Home Medication List Reviewed: Yes Review of Systems Constitutional: no symptoms reported, see HPI All Other Systems Reviewed Negative Unless Noted: Yes Past Sblforn-Ppwqef-Nqdbxf Hx Past Med/Social Hx: Reviewed Nursing Past Med/Soc Hx Patient Social History Alcohol Use: Denies Use Recreational Drug Use: No Smoking Status: Never a Smoker 2nd Hand Smoke Exposure: No Recent Foreign Travel: No Contact w/Someone Who Travel: No Recent Infectious Disease Expo: No Recent Hopitalizations: No Physical Abuse: No Sexual Abuse: No Past Medical History Surgeries: Yes Abdominal Respiratory: No Cardiac: Yes Neurological: Yes Dementia Genitourinary: No Gastrointestinal: No Musculoskeletal: No Endocrine: Yes Diabetes, Non-Insulin dep Nursing Suicide Risk Score: 0 Integumentary: No Physical Exam Vital Signs Vital Signs - First Documented 11/01/17 18:24 Temp 98.4 Pulse 99 Resp 18 B/P (MAP) 144/75 (98) Pulse Ox 100 O2 Delivery Nasal Cannula O2 Flow Rate 2.00 Capillary Refill : Less Than 3 Seconds General Appearance: No Apparent Distress (eyes closed, shallow respirations), WD/WN HEENT: TMs Normal, Moist Mucous Membranes Respiratory: Chest Non Tender, Lungs Clear Cardiovascular: Regular Rate, Rhythm, Normal Peripheral Pulses Gastrointestinal: Normal Bowel Sounds, Non Tender, Soft Skin: Normal Color, Warm/Dry, Other (she has superficial skin tears with dressings in place on her left lower extremity. She has an Gustavo wrap on her right lower extremity. There is trace erythema mid tibia, no warmth, induration or fluctuance noted.) Comments With a sternal rub she will open her eyes and mumble a few noncoherent words. Progress/Results/Core Measures Suspected Sepsis Recent Fever Within 48 Hours: No Infection Criteria Present: None New/Unexplained Altered Menta: No Sepsis Screen: No Definite Risk SIRS Temperature:98.4 Pulse: 99 Respiratory Rate: 18 Blood Pressure 144 /75 Mean: 98 Results/Orders Lab Results Laboratory Tests Test 11/01/17 19:07 11/01/17 20:05 Range/Units Glucometer 307 H 286 H 70-110 MG/DL My Orders Orders - TIMMY RICHARD Accucheck Stat ONCE (11/01/17 18:52) Insulin (Regular) Human (Humulin R (Per (11/01/17 19:14) Accucheck Stat ONCE (11/01/17 19:53) Vital Signs/I&O 11/01/17 11/01/17 18:24 21:28 Temp 98.4 98.4 Pulse 99 99 Resp 18 18 B/P (MAP) 144/75 (98) 144/75 (98) Pulse Ox 100 100 O2 Delivery Nasal Cannula O2 Flow Rate 2.00 2.00 Capillary Refill : Less Than 3 Seconds Blood Pressure Mean: 98 Point of Care Testing Finger Stick Blood Glucose: 286 Blood Glucose Action Taken: rn and provider notified Progress Note : Time: 18:40 Progress Note Initial evaluation completed, discussed patient by phone with Dr. Ospina, did not see the necessity to repeat the CT of her head or do aggressive labs. Accu- Chek 307, will give regular insulin 10 units subcutaneous. 0 patient continues to be nonresponsive with her eyes closed in no apparent distress. Spoke with her daughter from [place], no additional treatment recommendations at this time. She was in agreement with this plan of care. 2004 Accu-Chek down to 286. Notified [facility] of discharge criteria. Departure Impression Primary Impression: Unresponsive Additional Impression: Hyperglycemia Disposition: HOME, SELF-CARE Condition: Stable Departure-Patient Inst. Decision time for Depature: 20:25 Referrals: TANYA OSPINA MD (PCP/Family) Primary Care Physician Patient Instructions: Hyperglycemia, Adult (DC) Add. Discharge Instructions: Check glucose every 2 hours until under 150. If glucose over 200 give 5 units of regular insulin subcutaneously. Continue giving Keflex. Keep appointment with Dr. Ospina for tomorrow. Return to emergency department for urgent medical needs. All discharge instructions reviewed with patient and/or family. Voiced understanding. Copy Copies To 1: TANYA OSPINA MD, AMY ARNP November 01, 2017 20:27
[2017-11-01 21:28] VITALS: BP 144/75
== END 2017-11-01 21:28 | disposition home or self-care (01) ==
LOC: ER 18:20 → EDUNIT# 18:20 → ER 21:28
DX: R40.4 Transient alteration of awareness (principal); E11.65 Type 2 diabetes mellitus with hyperglycemia; F03.90 Unspecified dementia, unspecified severity, without behavioral disturbance, psychotic disturbance, mood disturbance, and anxiety
CPT/HCPCS: 82962; 96372; 99283

== ENCOUNTER 2017-11-27 13:22 | Inpatient (IN) | payer MEDICARE, MEDICAID ==
[~2017-11-27] VITALS: Ht 160 cm; Wt 70.0 kg
[2017-11-27 13:45] LABS: BASOPHILS % (AUTO) 0 % (0-10); EOSINOPHILS % (AUTO) 0 % (0-10); HEMATOCRIT 38 % (35-52); HEMOGLOBIN 12.6 G/DL (11.5-16.0); LYMPHOCYTES # (AUTO) 0.8 X 10^3 (1.0-4.0); LYMPHOCYTES % (AUTO) 4 % (12-44); MEAN CORPUSCULAR HEMOGLOBIN 33 PG (25-34); MEAN CORPUSCULAR HGB CONC 33 G/DL (32-36); MEAN CORPUSCULAR VOLUME 100 FL (80-99); MEAN PLATELET VOLUME 10.2 FL (7.4-10.4); MONOCYTES # (AUTO) 1.8 X 10^3 (0.0-1.0); MONOCYTES % (AUTO) 8 % (0-12); NEUTROPHILS # (AUTO) 18.6 X 10^3 (1.8-7.8); NEUTROPHILS % (AUTO) 88 % (42-75); PLATELET COUNT 122 10^3/uL (130-400); RED BLOOD COUNT 3.82 10^6/uL (4.35-5.85); RED CELL DISTRIBUTION WIDTH 16.6 % (10.0-14.5); WHITE BLOOD COUNT 21.2 10^3/uL (4.3-11.0)
[2017-11-27] MEDS ORDERED: INSU100I29 (13:58)
[2017-11-27] MEDS ORDERED: METF500T8 (13:58)
[2017-11-27] MEDS ORDERED: ALPR0.5T7 (13:58)
[2017-11-27] MEDS ORDERED: CITA10TA7 (13:58)
[2017-11-27] MEDS ORDERED: DIVA125C10 (13:58)
[2017-11-27] MEDS ORDERED: FURO20TA4 (13:58)
[2017-11-27] MEDS ORDERED: ALPR0.254 (13:58)
[2017-11-27 14:04] LABS: ANISOCYTOSIS SLIGHT; BAND NEUTROPHILS 3 %; LYMPHOCYTES % (MANUAL) 2 %; MONOCYTES % (MANUAL) 9 %; NEUTROPHILS % (MANUAL) 86 %
[2017-11-27 14:09] LABS: ALBUMIN 3.5 GM/DL (3.2-4.5); BILIRUBIN,TOTAL 0.7 MG/DL (0.1-1.0); CALCIUM 9.6 MG/DL (8.5-10.1); CREATININE SERUM 1.3 MG/DL (0.60-1.30); POTASSIUM 3.6 MMOL/L (3.6-5.0)
--- NOTE | 2017-11-27 14:34 | Diagnostic Imaging Report ---
INDICATION: Seizure/unresponsive. Portable chest at 02:09 p.m. FINDINGS: Heart size and pulmonary vascularity are normal. Lungs are clear. There are no effusions or pneumothoraces. IMPRESSION: Negative chest. Dictated by: Dictated on workstation # [id number]
[2017-11-27 14:47] LABS: BILIRUBIN,URINE NEGATIVE (NEGATIVE); CLARITY,URINE CLEAR; COLOR,URINE YELLOW; GLUCOSE, URINE (UA) 4+ (NEGATIVE); KETONES,URINE NEGATIVE (NEGATIVE); LEUKOCYTE ESTERASE ,URINE NEGATIVE (NEGATIVE); NITRITE,URINE NEGATIVE (NEGATIVE); PH,URINE 5 (5-9); PROTEIN,URINE 1+ (NEGATIVE); UROBILINOGEN,URINE NORMAL (NORMAL)
[2017-11-27 14:57] LABS: BACTERIA,URINE NEGATIVE /HPF; HYALINE CASTS, URINE >50 /LPF; RBC,URINE 25-50 /HPF; SQUAMOUS EPITHELIAL CELL,UR 0-2 /HPF
[2017-11-27] MEDS ORDERED: cefTRIAXone INJECTION 2,000 MG in NS (IVPB) 50 ML IV ONE (15:30)
--- NOTE | 2017-11-27 15:45 | Diagnostic Imaging Report ---
PROCEDURE: CT head without contrast. TECHNIQUE: Multiple contiguous axial images were obtained through the brain without the use of intravenous contrast. INDICATION: Unresponsive. COMPARISON: 10/31/2017. FINDINGS: Atrophy and periventricular white matter small vessel sequelae are stable findings. There are no findings suggestive of focal or generalized cerebral edema. No evidence for elevation of the intracranial pressures. No mass or mass effect. No findings of focal or generalized cerebral edema. Orbits, sinuses, and calvarium are unremarkable. IMPRESSION: Stable chronic senescent findings. No hemorrhage or acute pathology and no change from priors. Dictated by: Dictated on workstation # [id number]
[2017-11-27] MEDS ORDERED: IBUP200C75 PO (15:54)
[2017-11-27] MEDS ORDERED: LACT20SO2 PO (15:54)
[2017-11-27] MEDS ORDERED: SALI325S2 TOP (15:54)
[2017-11-27] MEDS ORDERED: PRD10T PO (15:54)
[2017-11-27] MEDS ORDERED: POTA10TA10 PO (15:54)
[2017-11-27] MEDS ORDERED: CHOL100048 PO (15:54)
[2017-11-27] MEDS ORDERED: ALPR0.254 PO ×2 (15:54)
[2017-11-27] MEDS ORDERED: FOLI1TAB24 PO (15:54)
[2017-11-27] MEDS ORDERED: MAGN400O7 PO (15:54)
[2017-11-27] MEDS ORDERED: CYAN100088 PO (15:54)
[2017-11-27] MEDS ORDERED: METF500T3 PO (15:54)
[2017-11-27] MEDS ORDERED: ACET-77 PO (15:54)
[2017-11-27] MEDS ORDERED: INSU100I29 SQ (15:54)
[2017-11-27] MEDS ORDERED: INSU100V16 SQ (15:54)
[2017-11-27] MEDS ORDERED: FURO20TA4 PO (15:54)
[2017-11-27] MEDS ORDERED: DVL125C PO (15:54)
[2017-11-27] MEDS ORDERED: POLY17PO6 PO (15:54)
[2017-11-27] MEDS ORDERED: CITA10TA12 PO (15:54)
[2017-11-27] MEDS ORDERED: NS IV 1000 ML 1,000 ML IV ONE (16:11)
[2017-11-27 17:14] LABS: INR 1.2 (0.8-1.4)
[2017-11-27 17:15] LABS: FIBRIN DEGRADATION PRODUCTS 5.09 UG/ML (0.00-0.49)
--- NOTE | 2017-11-27 18:09 | ED Neurological Problem ---
General Chief Complaint: Neurological Problems Stated Complaint: LETHARGIC/UNRESPONSIVE Nursing Triage Note: pt [facility] ed [facility] with complaints of seizure like activity and unrresponsiveness while in the shower this morning. Nursing Sepsis Screen: No Definite Risk Source: EMS, detention records, caregiver Exam Limitations: clinical condition History of Present Illness Date Seen by Provider: November 27, 2017 Time Seen by Provider: 13:25 Initial Comments This 87-year-old woman is brought to the emergency room via EMS from the detention where she has had declining condition in recent days. Today she reportedly had seizure-like activity while taking a shower and then was less responsive. She is somewhat responsive for us. She does not follow instructions well. She is alert to voice but is not responding verbally. Today a rash was noted in her midsection between the waist and upper thighs. Blood sugar was noted to be elevated at 361. She received insulin 20 units today prior to departure. EMS reports blood pressures have been marginal at 107 /56 and 94/55. She is afebrile. She is noted to have a coarse cough. No vomiting was reported but there seems to be emesis on her clothing. Allergies and Home Medications Allergies Coded Allergies: Sulfa (Sulfonamide Antibiotics) (Verified Allergy, Unknown, 11/27/17) Home Medications Acetaminophen 500 Mg Tablet, 1,000 MG PO BID, (Reported) TAKE 2 (500 MG) TABLETS TWICE DAILY Alprazolam 0.25 Mg Tablet, 0.25 MG PO HS, (Reported) Alprazolam 0.25 Mg Tablet, 0.125 MG PO DAILY, (Reported) TAKE 1/2 (0.25 MG) TABLET ONCE DAILY Cholecalciferol (Vitamin D3) 1,000 Unit Capsule, 1,000 UNIT PO DAILY, (Reported) Citalopram Hydrobromide 10 Mg Tablet, 10 MG PO DAILY, (Reported) Cyanocobalamin (Vitamin B-12) 1,000 Mcg Tablet, 1,000 MCG PO DAILY, (Reported) Divalproex Sodium 125 Mg Cap, 125 MG PO TID, (Reported) Folic Acid 1 Mg Tablet, 1 MG PO DAILY, (Reported) Furosemide 20 Mg Tablet, 20 MG PO DAILY, (Reported) Ibuprofen 200 Mg Capsule, 400 MG PO Q4H PRN for PAIN-MILD, (Reported) TAKE 2 (200 MG) TABLETS EVERY 4 HOURS NEEDED FOR MILD PAIN Insulin Aspart 100 Unit/1 Ml Susp, 10 UNIT SQ AC, (Reported) GIVE 10 UNITS FOR BLOOD SUGAR OF 420 OR HIGHER, RECHECK IN ONE HOUR. IF BLOOD SUGAR IS OVER 250 WHEN RECHECKED, GIVE ANOTHER 5 UNITS Insulin Aspart 100 Unit/1 Ml Susp, 5 UNIT SQ AC, (Reported) GIVE 5 UNITS IF BLOOD SUGAR RECHECK IS OVER 250. RECHECK EACH HOUR. Insulin Detemir 100 Unit/1 Ml Insuln.pen, 10 UNIT SQ HS, (Reported) Lactulose 20 Gm/30 Ml Solution, 20 GM PO BID PRN for CONSTIPATION-3RD LINE, ( Reported) Magnesium Hydroxide 400 Mg/5 Ml Oral.susp, 30 ML PO Q6H PRN for CONSTIPATION- 7TH LINE, (Reported) Metformin HCl 500 Mg Tab.er.24h, 500 MG PO BID, (Reported) Polyethylene Glycol 3350 17 Gm Powd.pack, 17 GM PO Q12H PRN for CONSTIPATION- 2ND LINE, (Reported) Potassium Chloride 10 Meq Tablet.er, 10 MEQ PO TID, (Reported) Prednisone 10 Mg Tab, 10 MG PO DAILY, (Reported) Salicylic Acid 325 Ml Shampoo, APPFUL TOP MON, THURS PRN for DANDRUFF, (Reported ) Patient Home Medication List Home Medication List Reviewed: Yes Review of Systems Constitutional: see HPI, weakness Eyes: No Symptoms Reported Ears, Nose, Mouth, Throat: no symptoms reported Respiratory: see HPI Cardiovascular: no symptoms reported Gastrointestinal: see HPI Genitourinary: no symptoms reported : No Musculoskeletal: no symptoms reported Skin: no symptoms reported Psychiatric/Neurological: See HPI Endocrine: See HPI Hematologic/Lymphatic: No Symptoms Reported Past Rqikzkj-Llrtyh-Itatga Hx Past Med/Social Hx: Reviewed and Corrections made Patient Social History Alcohol Use: Denies Use Recreational Drug Use: No Smoking Status: Unknown if Ever Smoked 2nd Hand Smoke Exposure: No Recent Foreign Travel: No Contact w/Someone Who Travel: No Recent Infectious Disease Expo: No Recent Hopitalizations: No Physical Abuse: No Sexual Abuse: No Mistreated: No Fear: No Past Medical History Surgeries: Yes Abdominal Respiratory: No Cardiac: Yes Hypertension Neurological: Yes Dementia Genitourinary: No Gastrointestinal: Yes Chronic Constipation Musculoskeletal: Yes Rheumatoid Arthritis Endocrine: Yes Diabetes, Non-Insulin dep HEENT: No Cancer: No Psychosocial: Yes Anxiety, Depression Nursing Suicide Risk Score: 0 Integumentary: No Blood Disorders: Yes (anemia) Adverse Reaction/Blood Tranf: No Physical Exam Vital Signs Vital Signs - First Documented 11/27/17 13:44 Temp 96.5 Pulse 96 Resp 18 B/P (MAP) 113/66 (82) Pulse Ox 99 Capillary Refill : Less Than 3 Seconds General Appearance: WD/WN, no apparent distress HEENT: PERRL/EOMI, normal ENT inspection Neck: normal inspection Respiratory: lungs clear, normal breath sounds, no respiratory distress, no accessory muscle use Cardiovascular: regular rate, rhythm, no edema, no murmur Gastrointestinal: normal bowel sounds, non tender, soft Extremities: no pedal edema, other (eschared appearing fingertips on the second and third fingers on the right hand.) Neurologic/Psychiatric: other (patient is alert and responds to voice. She is not verbal. She is not following instructions well. She seems to have generalized weakness.) Skin: warm/dry, other (macular rash over the lower trunk and upper thighs. Eschared skin on the tips of the second and third finger on the right hand. Small dusky punctate areas on the other fingertips are noted as well.) Focused Exam Lactate Level 11/27/17 15:15: Lactic Acid Level 6.96*H 11/27/17 17:40: Lactic Acid Level 4.06*H Lactic Acid Level Laboratory Tests Test 11/27/17 15:15 11/27/17 17:40 Lactic Acid Level 6.96 MMOL/L (0.50-2.00) *H 4.06 MMOL/L (0.50-2.00) *H Progress/Results/Core Measures Results/Orders Lab Results Laboratory Tests Test 11/27/17 12:44 11/27/17 13:36 11/27/17 14:39 11/27/17 15:15 Range/Units Valproic Acid (Depakene) Level 24.9 L 50.0-100.0 UG/ML White Blood Count 21.2 H 4.3-11.0 10^3/uL Red Blood Count 3.82 L 4.35-5.85 10^6/uL Hemoglobin 12.6 11.5-16.0 G/DL Hematocrit 38 35-52 % Mean Corpuscular Volume 100 H 80-99 FL Mean Corpuscular Hemoglobin 33 25-34 PG Mean Corpuscular Hemoglobin Concent 33 32-36 G/DL Red Cell Distribution Width 16.6 H 10.0-14.5 % Platelet Count 122 L 130-400 10^3/uL Mean Platelet Volume 10.2 7.4-10.4 FL Neutrophils (%) (Auto) 88 H 42-75 % Lymphocytes (%) (Auto) 4 L 12-44 % Monocytes (%) (Auto) 8 0-12 % Eosinophils (%) (Auto) 0 0-10 % Basophils (%) (Auto) 0 0-10 % Neutrophils # (Auto) 18.6 H 1.8-7.8 X 10^3 Lymphocytes # (Auto) 0.8 L 1.0-4.0 X 10^3 Monocytes # (Auto) 1.8 H 0.0-1.0 X 10^3 Eosinophils # (Auto) 0.0 0.0-0.3 10^3/uL Basophils # (Auto) 0.0 0.0-0.1 10^3/uL Neutrophils % (Manual) 86 % Lymphocytes % (Manual) 2 % Monocytes % (Manual) 9 % Band Neutrophils 3 % Anisocytosis SLIGHT Macrocytosis SLIGHT Prothrombin Time 15.0 H 12.2-14.7 SEC INR Comment 1.2 0.8-1.4 Activated Partial Thromboplast Time 25 24-35 SEC Fibrinogen 506 H 221-496 MG/DL D-Dimer 5.09 H 0.00-0.49 UG/ML Sodium Level 146 H 135-145 MMOL/L Potassium Level 3.6 3.6-5.0 MMOL/L Chloride Level 110 H 98-107 MMOL/L Carbon Dioxide Level 18 L 21-32 MMOL/L Anion Gap 18 H 5-14 MMOL/L Blood Urea Nitrogen 35 H 7-18 MG/DL Creatinine 1.30 0.60-1.30 MG/DL Estimat Glomerular Filtration Rate 39 BUN/Creatinine Ratio 27 Glucose Level 337 H 70-105 MG/DL Calcium Level 9.6 8.5-10.1 MG/DL Magnesium Level 2.0 1.8-2.4 MG/DL Total Bilirubin 0.7 0.1-1.0 MG/DL Aspartate Amino Transf (AST/SGOT) 11 5-34 U/L Alanine Aminotransferase (ALT/SGPT) 16 0-55 U/L Alkaline Phosphatase 81 40-136 U/L C-Reactive Protein High Sensitivity 18.15 H 0.00-0.50 MG/DL Total Protein 7.0 6.4-8.2 GM/DL Albumin 3.5 3.2-4.5 GM/DL Urine Color YELLOW Urine Clarity CLEAR Urine pH 5 5-9 Urine Specific [place] 1.010 L 1.016-1.022 Urine Protein 1+ H NEGATIVE Urine Glucose (UA) 4+ H NEGATIVE Urine Ketones NEGATIVE NEGATIVE Urine Nitrite NEGATIVE NEGATIVE Urine Bilirubin NEGATIVE NEGATIVE Urine Urobilinogen NORMAL NORMAL MG/DL Urine Leukocyte Esterase NEGATIVE NEGATIVE Urine RBC (Auto) 3+ H NEGATIVE Urine RBC 25-50 H /HPF Urine WBC NONE /HPF Urine Squamous Epithelial Cells 0-2 /HPF Urine Crystals NONE /LPF Urine Bacteria NEGATIVE /HPF Urine Casts PRESENT /LPF Urine Hyaline Casts >50 H /LPF Urine Mucus NEGATIVE /LPF Urine Culture Indicated NO Lactic Acid Level 6.96 *H 0.50-2.00 MMOL/L Test 11/27/17 17:40 Range/Units Lactic Acid Level 4.06 *H 0.50-2.00 MMOL/L My Orders Orders - SUHA LEIJA MD Cbc With Automated Diff (11/27/17 13:39) Comprehensive Metabolic Panel (11/27/17 13:39) Hs C Reactive Protein (11/27/17 13:39) Magnesium (11/27/17 13:39) Ua Culture If Indicated (11/27/17 13:39) Saline Lock/Iv-Start (11/27/17 13:39) Catheter(Urinary) Insert & Ass ,15 (11/27/17 13:39) Monitor-Rhythm Ecg Trace Only (11/27/17 13:39) Chest 1 View, Ap/Pa Only (11/27/17 13:39) Manual Differential (11/27/17 13:36) Valproic Acid (11/27/17 13:52) Blood Culture (11/27/17 14:39) Lactic Acid Analyzer (11/27/17 14:39) Ct Head Wo (11/27/17 15:15) Ceftriaxone Injection (Rocephin Injectio (11/27/17 15:30) Csf Cell Count (11/27/17 16:01) Csf Glucose (11/27/17 16:01) Csf Total Protein (11/27/17 16:01) Csf Culture (11/27/17 16:01) Virus Culture (11/27/17 16:01) Saline Lock/Iv-Start (11/27/17 16:11) Ns Iv 1000 Ml (Sodium Chloride 0.9%) (11/27/17 16:11) Fibrin Degradation Products (11/27/17 16:51) Protime With Inr (11/27/17 16:51) Partial Thromboplastin Time (11/27/17 16:51) Fibrinogen (11/27/17 16:51) Medications Given in ED Current Medications Medications Dose Ordered Sig/Kaylynn Route Start Time Stop Time Status Last Admin Dose Admin Ceftriaxone Sodium 2000 mg/ Sodium Chloride 50 ml @ 200 mls/hr ONCE ONCE IV 11/27/17 15:30 11/27/17 15:44 DC 11/27/17 15:40 200 MLS/HR Sodium Chloride 1,000 ml @ 0 mls/hr Q0M ONCE IV 11/27/17 16:11 11/27/17 16:12 DC 11/27/17 16:28 0 MLS/HR Vital Signs/I&O 11/27/17 13:44 Temp 96.5 Pulse 96 Resp 18 B/P (MAP) 113/66 (82) Pulse Ox 99 Blood Pressure Mean: 82 Progress Progress Note : Progress Note Patient was seen and examined and no source of infection was immediately obvious. However, her rash expanded significantly during the course of her ER stay. This combined with leukocytosis and seizure-like activity raise concern for meningitis. Lumbar puncture was arranged for anesthesia to perform on admission. Antibiotic administration was not delayed for lumbar puncture. She received Rocephin 2 g IV in the ER. She also received a liter of IV fluids. CT scan revealed no acute abnormalities. Gutierrez catheter was placed. Decision for lumbar puncture was delayed as verbal consent was needed from the patient's family. I discussed risks and benefits with the patient's son who then further discussed the case with his sister. Patient's family eventually called back and verbally consented to lumbar puncture. We discussed other treatment options including comfort care, the family wishes to be aggressive at this time. Diagnostic Imaging Diagonstic Imaging: Xray Plain Films/CT/US/NM/MRI: chest Comments Chest x-ray viewed by me and report reviewed. See report below: NAME: PRADIP BOUDREAUX [facility] REC#: [id number] PT STATUS: REG ER : 1930 PHYSICIAN: SUHA LEIJA MD ADMIT DATE: 11/27/17/ER Signed Date of Exam: 11/27/17 CHEST 1 VIEW, AP/PA ONLY INDICATION: Seizure/unresponsive. Portable chest at 02:09 p.m. FINDINGS: Heart size and pulmonary vascularity are normal. Lungs are clear. There are no effusions or pneumothoraces. IMPRESSION: Negative chest. Dictated by: Dictated on workstation # [id number] Dict: 11/27/171426 Trans: 11/27/171614 Interpreted by: DEMOND MACEDO MD Electronically signed by: DEMOND MACEDO MD 11/27/171614 Diagonstic Imaging: CT Plain Films/CT/US/NM/MRI: head Comments CT head viewed by me and report reviewed. See report below: NAME: PRADIP BOUDREAUX [facility] REC#: [id number] PT STATUS: REG ER : 1930 PHYSICIAN: SUHA LEIJA MD ADMIT DATE: 11/27/17/ER Signed Date of Exam: 11/27/17 CHEST 1 VIEW, AP/PA ONLY INDICATION: Seizure/unresponsive. Portable chest at 02:09 p.m. FINDINGS: Heart size and pulmonary vascularity are normal. Lungs are clear. There are no effusions or pneumothoraces. IMPRESSION: Negative chest. Dictated by: Dictated on workstation # [id number] Dict: 11/27/17 142 Trans: 11/27/171614 Interpreted by: DEMOND MACEDO MD Electronically signed by: DEMOND MACEDO MD 11/27/171614 Departure Communication (Admissions) Time/Spoke to Admitting Phy: 18:03 Dr. Bib Ospina Impression Primary Impression: Altered mental status Qualified Codes: R41.82 - Altered mental status, unspecified Additional Impressions: Seizure-like activity Rash Leukocytosis Qualified Codes: D72.829 - Elevated white blood cell count, unspecified Disposition: 09 ADMITTED INPATIENT Condition: Improved Admissions Decision to Admit Reason: Admit from ER (General) Decision to Admit/Date: November 27, 2017 Time/Decision to Admit Time: 15:23 Departure-Patient Inst. Referrals: BIB OSPINA MD (PCP/Family) Primary Care Physician SUHA LEIJA MD November 27, 2017 18:09
[2017-11-27 18:20] VITALS: BP 116/87
[2017-11-27] MEDS ORDERED: ONDANSETRON 4 MG/2 ML (SDV) Z0FRAN IV PRN (18:45)
[2017-11-27] MEDS ORDERED: CATHETER FLUSH 10 ML SYR IV PRN (18:45)
[2017-11-27] MEDS ORDERED: LIDOCAINE 1% INJ 20 ML 20 ML VIAL ONE (19:02)
--- NOTE | 2017-11-27 19:47 | History & Physical ---
History of Present Illness History of Present Illness Reason for visit/HPI 87 yo F with history of diabetes, depression, dementia admitted for concern for sepsis, possibly meningitis. She has had a couple UTIs and a bout of cellulitis a couple months ago otherwise she has been fairly healthy. In the last month though her blood sugars have been more out of control. Pt's blood sugar have been >300 the last couple days. Pt was in the restroom and staff at [facility] noted possible seizure activity so she was transferred to the ER. Her blood pressure has remained normotensive and afebrile. Patient's mental status has declined though over last few months ; specifically the last 2days she has not been as responsive to staff. It was noted patient had a rash this weekend that improved but this AM it was back and has continued to spread during her ER visit. She was given meningitic dose of 2g rocephin prior to LP being obtained. Lactic acid improving after IVF down from 6 to 4. Patient admitted to ICU for further workup. [facility] will be called as with the rash and symptoms meningitis is suspected. Date of Admission November 27, 2017 at 18:07 Date Seen by Provider: November 27, 2017 Time Seen by Provider: 19:40 I consulted on this patient on 11/27/17 19:39 Attending Physician Bib Ospina MD Admitting Physician Bib Ospina MD Consult Allergies and Home Medications Allergies Coded Allergies: Sulfa (Sulfonamide Antibiotics) (Verified Allergy, Unknown, 11/27/17) Home Medications Acetaminophen 500 Mg Tablet, 1,000 MG PO BID, (Reported) TAKE 2 (500 MG) TABLETS TWICE DAILY Alprazolam 0.25 Mg Tablet, 0.25 MG PO HS, (Reported) Alprazolam 0.25 Mg Tablet, 0.125 MG PO DAILY, (Reported) TAKE 1/2 (0.25 MG) TABLET ONCE DAILY Cholecalciferol (Vitamin D3) 1,000 Unit Capsule, 1,000 UNIT PO DAILY, (Reported) Citalopram Hydrobromide 10 Mg Tablet, 10 MG PO DAILY, (Reported) Cyanocobalamin (Vitamin B-12) 1,000 Mcg Tablet, 1,000 MCG PO DAILY, (Reported) Divalproex Sodium 125 Mg Cap, 125 MG PO TID, (Reported) Folic Acid 1 Mg Tablet, 1 MG PO DAILY, (Reported) Furosemide 20 Mg Tablet, 20 MG PO DAILY, (Reported) Ibuprofen 200 Mg Capsule, 400 MG PO Q4H PRN for PAIN-MILD, (Reported) TAKE 2 (200 MG) TABLETS EVERY 4 HOURS NEEDED FOR MILD PAIN Insulin Aspart 100 Unit/1 Ml Susp, 10 UNIT SQ AC, (Reported) GIVE 10 UNITS FOR BLOOD SUGAR OF 420 OR HIGHER, RECHECK IN ONE HOUR. IF BLOOD SUGAR IS OVER 250 WHEN RECHECKED, GIVE ANOTHER 5 UNITS Insulin Aspart 100 Unit/1 Ml Susp, 5 UNIT SQ AC, (Reported) GIVE 5 UNITS IF BLOOD SUGAR RECHECK IS OVER 250. RECHECK EACH HOUR. Insulin Detemir 100 Unit/1 Ml Insuln.pen, 10 UNIT SQ HS, (Reported) Lactulose 20 Gm/30 Ml Solution, 20 GM PO BID PRN for CONSTIPATION-3RD LINE, ( Reported) Magnesium Hydroxide 400 Mg/5 Ml Oral.susp, 30 ML PO Q6H PRN for CONSTIPATION- 7TH LINE, (Reported) Metformin HCl 500 Mg Tab.er.24h, 500 MG PO BID, (Reported) Polyethylene Glycol 3350 17 Gm Powd.pack, 17 GM PO Q12H PRN for CONSTIPATION- 2ND LINE, (Reported) Potassium Chloride 10 Meq Tablet.er, 10 MEQ PO TID, (Reported) Prednisone 10 Mg Tab, 10 MG PO DAILY, (Reported) Salicylic Acid 325 Ml Shampoo, APPFUL TOP SUN, PRN for DANDRUFF, (Reported ) Patient Home Medication List Home Medication List Reviewed: Yes Past Tedpqhu-Bltcqo-Srtkpr Hx Patient Social History Alcohol Use: Denies Use Recreational Drug Use: No Smoking Status: Unknown if Ever Smoked 2nd Hand Smoke Exposure: No Recent Foreign Travel: No Contact w/other who traveled: No Recent Hopitalizations: No Recent Infectious Disease Expo: No Surgeries Yes Abdominal Respiratory No Cardiovascular Yes Hypertension Neurological Yes Dementia Genitourinary No Gastrointestinal Yes Chronic Constipation Musculoskeletal No Rheumatoid Arthritis Endocrine History of Endocrine Disorders: Yes Endocrine Disorders: Diabetes, Non-Insulin dep Psychosocial History of Psychiatric Problem: Yes Behavioral Health Disorders: Anxiety, Depression Integumentary History of Skin or Integumenta: No Blood Transfusions History of Blood Disorders: Yes (anemia) Adverse Reaction to a Blood Tr: No Review of Systems Review of Systems ROS Unable to Obtain: patient did not answer questions, history of dementia Physical Exam Vital Signs Vital Signs - First Documented 11/27/17 13:44 Temp 96.5 Pulse 96 Resp 18 B/P (MAP) 113/66 (82) Pulse Ox 99 Capillary Refill : Less Than 3 Seconds General Appearance: No Apparent Distress, Chronically ill HEENT: PERRL/EOMI Neck: Non Tender Respiratory: Chest Non Tender, Lungs Clear, Normal Breath Sounds, No Accessory Muscle Use Cardiovascular: Regular Rate, Rhythm (tachycardia), No Edema Gastrointestinal: Normal Bowel Sounds, Non Tender, Soft Rectal: Deferred Back: No CVA Tenderness Extremity: Normal Capillary Refill, Non Tender, Other (eschar on tip of right 2nd,3rd fingers.) Neurologic/Psychiatric: Depressed Affect, Other (does not respond verbally- pulls away from contact.) Skin: Warm/Dry, Rash (blanching rash that is on legs, abdomen, buttocks.) Lymphatic: No Adenopathy Assessment/Plan Assessment/Plan Admission Dx 87 yo F *Sepsis- blood cultures, LP pending- 2 g rocephin IV, fluid hydration- blood pressure stable, afebrile, tachycardic, leukocytosis *lactic acidosis- improved with IVF *Diabetes mellitus II with hyperglycemia- q6hr blood sugar checks *dementia- monitor *depression- citalopram. Dispo- keep family updated- they are considering comfort care if she declines in condition. Admission Status: Inpatient Order (span 2 midnights) Reason for Inpatient Admission: Concern for sepsis- due to patient rapid decline her admission will span 2 midnights as she has altered mental status. Assessment and Plan initiated sepsis protocol- antibiotics were given after blood culture but lumbar puncture was obtained late. BP is normtensive, afebrile she is tachycardic and leukocytosis noted- should improve with antibiotics, fluid hydration and improvement of hyperglycemia. Prognosis: overall not good- Family was spoken with over the phone by ER staff - if patient starts to decline they will change to comfort care. Problems: (1) Diabetes mellitus with hyperglycemia Qualifiers: Qualified Codes: E11.65 - Type 2 diabetes mellitus with hyperglycemia; Z79.4 - adjunct faculty for medical terminology (current) use of insulin Assessment & Plan: q6hr blood sugar checks- sliding scale insulin (2) Dysthymic disorder Assessment & Plan: continue citalopram also has xanax for anxiety (3) Dementia Qualifiers: Assessment & Plan: frequent re-orientation when alert keep regular routine. (4) Lactic acid acidosis Assessment & Plan: continue IVF trending lactate. (5) Altered mental status Qualifiers: Qualified Codes: R40.0 - Somnolence Assessment & Plan: treating possible underlying infection correcting hyperglycemia monitor her mental status for changes. (6) Sepsis affecting skin Assessment & Plan: blood culture, lumbar puncture pending continue rocephin 2g IVF monitoring lactic acid- trending down. Clinical Quality Measures Admission Status Admission Status: Inpatient Order (span 2 midnights) Reason for Inpatient Admission: Concern for sepsis- due to patient rapid decline her admission will span 2 midnights as she has altered mental status. DVT/VTE Risk/Contraindication: Risk Factor Score Per Nursin RFS Level Per Nursing on Admit: 4+=Very High Sepsis: Within 3hrs of presentation: Admin fluids, Admin ABX, Blood cultures prior to ABX's, Focus exam, Lactate level BIB OSPINA MD November 27, 2017 19:47
[2017-11-27] MEDS: NS IV 1000 ML 1,000 ML IV SCH (19:59)
--- NOTE | 2017-11-27 19:59 | Anesthesia-Procedure Note ---
Procedures/Interventions Procedure Start/Stop/Diagnosis Date of Procedure: November 27, 2017 Start Time: 19:00 Stop Time: 20:00 Lumbar Puncture Discussed Risk,Benefits: Yes Patient Consents: Yes Position: Lying, Right Sterile Technique: Yes Opening Pressure: 11 Fluid Color: clear Spinal Needle Used: 20g Quinke 3 1/2inch Procedure Notes ASA 4 RAPHAEL FAULKNER CRNA November 27, 2017 19:59
[2017-11-27 20:45] LABS: APPEARANCE,CSF CLEAR; COLOR,CSF COLORLESS; CSF TUBE NUMBER 4; RED BLOOD CELL,CSF 9 CELLS (0-0); WHITE BLOOD CELL,CSF 1 CELLS (0-5)
--- OUTSIDE RECORDS SUMMARY | 2017-11-27 20:47 | XMS REPORT | Continuity of Care Document ---
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 04/10/2017 PACO CORDERO MD Ot L03.116 CELLULITIS OF LEFT LOWER LIMB 04/10/2017 PACO CORDERO MD Ot L97.222 NON-PRESSURE CHRONIC ULCER OF LEFT CALF 04/25/2017 PACO CORDERO MD Ot 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 ULC 04/25/2017 PACO CORDERO MD Ot 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 04/25/2017 PACO CORDERO MD Ot L97.222 NON-PRESSURE CHRONIC ULCER OF LEFT CALF 04/25/2017 PACO CORDERO MD, Ot 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 04/25/2017 PACO CORDERO MD, Ot 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 04/25/2017 PACO CORDERO MD Ot L03.116 CELLULITIS OF LEFT LOWER LIMB 04/25/2017 PACO CORDERO MD, Ot L97.222 NON-PRESSURE CHRONIC ULCER OF LEFT CALF 05/03/2017 PACO CORDERO MD Ot 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 05/03/2017 PACO CORDERO MD Ot 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 05/03/2017 PACO CORDERO MD Ot L97.222 NON-PRESSURE CHRONIC ULCER OF LEFT CALF 05/09/2017 PACO CORDERO MD Ot 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 05/09/2017 PACO CORDERO MD Ot 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 05/09/2017 PACO CORDERO MD Ot L97.222 NON-PRESSURE CHRONIC ULCER OF LEFT CALF 05/15/2017 PACO CORDERO MD Ot 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 05/15/2017 PACO CORDERO MD Ot 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 05/15/2017 PACO CORDERO MD Ot L97.222 NON-PRESSURE CHRONIC ULCER OF LEFT CALF 05/29/2017 PACO CORDERO MD Ot 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 [facility] 05/29/2017 PACO CORDERO MD Ot 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 05/29/2017 PACO CORDERO MD Ot L97.222 NON-PRESSURE CHRONIC ULCER OF LEFT CALF 08/10/2017 PACO CORDERO MD Ot 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 [facility] 08/25/2017 PACO CORDERO MD Ot I87.332 [...] Pan W I10 ESSENTIAL (PRIMARY) HYPERTENSION 08/31/2017 Maxim, Rashaun W M06.9 RHEUMATOID ARTHRITIS, UNSPECIFIED 10/31/2017 ANGELICA HERNANDEZ PRESCHOOL TEACHER AIDE Ot E11.9 TYPE 2 DIABETES MELLITUS WITHOUT COMPLIC 10/31/2017 ANGELICA HERNANDEZ PRESCHOOL TEACHER AIDE Ot F03.90 UNSPECIFIED DEMENTIA WITHOUT BEHAVIORAL 10/31/2017 ANGELICA HERNANDEZ PRESCHOOL TEACHER AIDE Ot R41.82 ALTERED MENTAL STATUS, UNSPECIFIED 10/31/2017 ANGELICA HERNANDEZ PRESCHOOL TEACHER AIDE Ot Z91.81 HISTORY OF FALLING 11/01/2017 PACO CORDERO MD Ot 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 [facility] 11/01/2017 PACO CORDERO MD Ot 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 11/01/2017 PACO CRODERO MD Ot L03.116 CELLULITIS OF LEFT LOWER LIMB 11/01/2017 PACO CORDERO MD Ot L97.222 NON-PRESSURE CHRONIC ULCER OF LEFT CALF 11/01/2017 PACO CORDERO MD Ot 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 [facility] 11/01/2017 PACO CORDERO MD Ot 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 11/01/2017 PACO CORDERO MD Ot L97.222 NON-PRESSURE CHRONIC ULCER OF LEFT CALF 11/01/2017 PACO CORDERO MD Ot 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 [facility] 11/01/2017 PACO CORDERO MD Ot 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 11/01/2017 PACO CORDERO MD Ot L97.222 NON-PRESSURE CHRONIC ULCER OF LEFT CALF 11/01/2017 PACO CORDERO MD Ot 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 [facility] 11/01/2017 PACO CORDERO MD Ot 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 11/01/2017 PACO CORDERO MD Ot L97.222 NON-PRESSURE CHRONIC ULCER OF LEFT CALF 11/01/2017 TIMMY RICHARDP Ot E11.65 TYPE 2 DIABETES MELLITUS WITH HYPERGLYCE 11/01/2017 TIMMY RICHARDP Ot F03.90 UNSPECIFIED DEMENTIA WITHOUT BEHAVIORAL 11/01/2017 TIMMY RICHARDP Ot R40.4 TRANSIENT ALTERATION OF AWARENESS 11/02/2017 ANGELICA HERNANDEZ PRESCHOOL TEACHER AIDE Ot E11.9 TYPE 2 DIABETES MELLITUS WITHOUT COMPLIC 11/02/2017 ANGELICA HERNANDEZ PRESCHOOL TEACHER AIDE Ot F03.90 UNSPECIFIED DEMENTIA WITHOUT BEHAVIORAL 11/02/2017 ANGELICA HERNANDEZ PRESCHOOL TEACHER AIDE Ot R41.82 ALTERED MENTAL STATUS, UNSPECIFIED 11/02/2017 ANGELICA HERNANDEZ PRESCHOOL TEACHER AIDE Ot Z91.81 HISTORY OF FALLING 11/04/2017 TIMMY RICHARD Ot E11.65 TYPE 2 DIABETES MELLITUS WITH HYPERGLYCE 11/04/2017 TIMMY RICHARDP Ot F03.90 UNSPECIFIED DEMENTIA WITHOUT BEHAVIORAL 11/04/2017 TIMMY RICHARDP Ot R40.4 TRANSIENT ALTERATION OF AWARENESS Procedures There is no data. Results Test Result Range Bacteria identification in isolate by anaerobe culture - 04/02/17 11:07 Bacteria identification in isolate by anaerobe culture NOANA NRG Gram stain microscopy - 04/02/17 11:07 GRAM STAIN RESULT RARE WBC, NO BACTERIA NRG Bacteria identification in wound by culture - 04/02/17 11:07 Bacteria identification in wound by culture [id number] NRG FREE TEXT EXTERNAL SENSITIVITY REPORTED 04/10/17 10:35 NRG QUANTITY OF GROWTH Moderate Growth NRG FREE TEXT ENTRY 2 TESTING BY [facility] NRG FREE TEXT ENTRY 3 LAB [...] 5-8.5 Urine-Protein Trace Negative Urine-RBC 0-2/HPF Urine-Specific [place] 1.025 1.000-1.030 Urine-WBC TNTC Urobilinogen 0.2 0.2-1.0 MRSA Screen - 08/21/17 10:16 FINAL CULTURE RESULTS MRSA Negative Nasal Culture MEDIA PLATED Setup at 11:42 on 08/21/2017 Urine Culture - 08/21/17 16:52 PRELIM CULTURE RESULTS 50,000-100,000 Gram Negative HERMILA / ID to [id number],000 Gram Positive Mixed Zohra Probable Skin Contaminant [...] 33.7 g/dL 32.0-36.0 MCV 95.9 fL 80.0-97.0 Camas% 16.6 % 0.0-12.0 MPV 10.0 fL 7.4-10.0 Kwaku% 57.0 % 37.0-80.0 Plt 76 K/uL 150-400 RBC 3.68 M/uL 3.60-5.00 RDW 14.4 % 11.6-14.8 WBC 4.89 K/uL 5.00-10.00 Kwaku 2.79 K/uL 2.00-6.90 [place] 0.8 K/uL 0.0-0.9 Baso 0.0 K/uL 0.0-0.2 [...] ovalocytes detection by light microscopy SLIGHT NRG [id number] - 10/31/17 09:45 [id number] 29.8 ug/mL 50.0-100.0 Capillary blood glucose measurement by glucometer (mass/volume) - 11/01/17 19: 07 Capillary blood glucose measurement by glucometer (mass/volume) 307 mg/dL 70-110 Capillary blood glucose measurement by glucometer (mass/volume) - 11/01/17 20: 05 Capillary blood glucose measurement by glucometer (mass/volume) 286 mg/dL 70-110 Encounters ACCT No. Visit Date/Time Discharge Status Pt. Type Provider Facility Loc./Unit Complaint [id number] 09/22/2015 10:05:52 09/22/2015 23:59:59 CLS Outpatient Dean Fletcher [id number] 07/14/2015 10:01:32 07/14/2015 23:59:59 CLS Outpatient ChanceDean [id number] 03/25/2015 09:59:49 03/25/2015 23:59:59 CLS Outpatient ChanceDean [id number] 02/08/2015 22:22:58 02/08/2015 23:59:59 CLS Outpatient ChanceDean [id number] 02/08/2015 21:34:46 02/08/2015 23:59:59 CLS Outpatient ChanceDean caldera [id number] 10/27/2014 11:49:30 10/27/2014 23:59:59 CLS Outpatient ChanceDean [id number] 09/24/2014 09:00:34 09/24/2014 23:59:59 CLS Outpatient ChanceDean [id number] 07/14/2014 09:02:52 07/14/2014 23:59:59 CLS Outpatient ChanceDean [id number] 06/18/2014 14:54:06 06/18/2014 23:59:59 CLS Outpatient ChanceDean caldera [id number] 05/12/2014 09:04:31 05/12/2014 23:59:59 CLS Outpatient ChanceDean [id number] 03/17/2014 08:58:19 03/17/2014 23:59:59 CLS Outpatient ChanceDean [id number] 01/26/2014 10:32:13 01/26/2014 23:59:59 CLS Outpatient ChanceDean [id number] 08/21/2017 00:00:00 08/31/2017 09:00:00 DIS Inpatient [facility] [id number] 08/21/2017 13:06:14 Document Registration [id number] 11/01/2017 18:20:00 11/01/2017 21:28:00 DIS Emergency TIMMY RICHARD [facility] ER UNRESPONSIVE [id number] 10/31/2017 09:15:00 10/31/2017 12:49:00 DIS Emergency ANGELICA HERNANDEZ APRN [facility] ER LT SIDE LEANING [id number] 04/23/2017 09:00:00 04/23/2017 23:59:59 CLS Outpatient PACO CORDERO MD [facility] WOUNDCARE [id number] 04/16/2017 09:00:00 04/16/2017 23:59:59 CLS Outpatient PACO CORDERO MD [facility] WOUNDCARE [id number] 04/09/2017 08:53:00 04/09/2017 23:59:59 CLS Outpatient PACO CORDERO MD [facility] WOUNDCARE [id number] 04/02/2017 09:46:00 04/02/2017 23:59:59 CLS Outpatient PACO CORDERO MD [facility] WOUND[facility] [id number] 08/21/2017 00:00:00 Document Registration [id number] 11/13/2017 13:40:00 11/13/2017 23:59:59 [facility]
[2017-11-27 21:00] VITALS: BP 133/64
[2017-11-27 21:07] LABS: CSF GLUCOSE 159 MG/DL (50-80); CSF TOTAL PROTEIN 24 MG/DL (15-40)
[2017-11-27] MEDS: DIVALPROX SPRINKLE 125 MG (DEPAKOTE) CAP PO SCH (21:53)
[2017-11-27 22:00] VITALS: BP 153/62
[2017-11-27 23:00] VITALS: BP 103/68
[2017-11-28] VITALS (19 sets, daily range): BP systolic 102–151; BP diastolic 53–104
[2017-11-28] MEDS: inSUlin ASPART (NovoLOG) 1 UNIT/0.01 ML (CHARGE PER UNIT) SC SCH ×5 (00:07→20:32)
[2017-11-28] MEDS: NS IV 1000 ML 1,000 ML IV SCH (02:14)
[2017-11-28] MEDS: cefTRIAXone 2 GM/NS 50 ML IVPB IV SCH ×4 (03:53→15:28)
[2017-11-28 04:41] LABS: BASOPHILS % (AUTO) 0 % (0-10); EOSINOPHILS % (AUTO) 0 % (0-10); HEMATOCRIT 33 % (35-52); HEMOGLOBIN 10.9 G/DL (11.5-16.0); LYMPHOCYTES # (AUTO) 0.8 X 10^3 (1.0-4.0); LYMPHOCYTES % (AUTO) 5 % (12-44); MEAN CORPUSCULAR HEMOGLOBIN 32 PG (25-34); MEAN CORPUSCULAR HGB CONC 33 G/DL (32-36); MEAN CORPUSCULAR VOLUME 99 FL (80-99); MEAN PLATELET VOLUME 9.7 FL (7.4-10.4); MONOCYTES # (AUTO) 1.6 X 10^3 (0.0-1.0); MONOCYTES % (AUTO) 9 % (0-12); NEUTROPHILS # (AUTO) 14.8 X 10^3 (1.8-7.8); NEUTROPHILS % (AUTO) 86 % (42-75); PLATELET COUNT 118 10^3/uL (130-400); RED BLOOD COUNT 3.37 10^6/uL (4.35-5.85); RED CELL DISTRIBUTION WIDTH 16.5 % (10.0-14.5); WHITE BLOOD COUNT 17.1 10^3/uL (4.3-11.0)
[2017-11-28 05:01] LABS: ALANINE AMINOTRANSFERASE 12 U/L (0-55); ALBUMIN 3.2 GM/DL (3.2-4.5); ALKALINE PHOSPHATASE 72 U/L (40-136); BILIRUBIN,TOTAL 0.4 MG/DL (0.1-1.0); BUN/CREATININE RATIO 50; CARBON DIOXIDE 23 MMOL/L (21-32); CHLORIDE 115 MMOL/L (98-107); CREATININE SERUM 0.76 MG/DL (0.60-1.30); GFR ESTIMATED > 60; GLUCOSE 130 MG/DL (70-105); POTASSIUM 3.7 MMOL/L (3.6-5.0); SODIUM 152 MMOL/L (135-145); TOTAL PROTEIN 6.2 GM/DL (6.4-8.2)
[2017-11-28] MEDS: FOLIC ACID 1 MG TAB PO SCH (05:41)
[2017-11-28] MEDS: 1/2 NS IV SOLUTION 1,000 ML IV SCH ×2 (07:37→17:48)
[2017-11-28] MEDS: DIVALPROX SPRINKLE 125 MG (DEPAKOTE) CAP PO SCH ×3 (07:46→20:16)
[2017-11-28] MEDS: ALPRAZolam 0.25 MG (XANAX) TAB PO SCH (07:46)
--- NOTE | 2017-11-28 10:51 | ST Dysphagia Evaluation ---
Speech Evaluation-General Medical Diagnosis Altered Mental Status; Suspected Meningitis Onset Date: November 27, 2017 Therapy Diagnosis Therapy Diagnosis: Mild Oral Dysphagia Precautions Precautions: Aspiration Precautions/Isolations: Droplet Isolation, Seizure, Fall Prevention Referral Referring Physician: Dr. Bib Valente Reason for Referral: Evaluation/Treatment Clinical Bedside Swallowing Evaluation Medical History Pertinent Medical History: DM, Dementia, HTN Depression Current History The patient was recently admitted to [facility] with seizure-like activity, altered mental status, and suspected meningitis. Reviewed History: Yes Speech PLF/Current-Dysphagia Prior Level of Function The patient was nonverbal throughout the evaluation and was unable to provide prior level of function to the clinician. Subjective The patient was arranged upright in bed by the clinician prior to the study. At baseline, the patient's SpO2% was 93%. The patient was agreeable to participation in the dysphagia evaluation. CXR: 11/27/2017: Negative Chest. Cognitive Status The patient did not respond to orientation information verbally, through yes and no responses, or in a field of two. Oral Motor Skills Dentition: Natural Ability to Follow Directions: Poor (The patient did not follow verbal or visual cues for completion of oral mechanism.) The patient is NPO pending the results of the swallowing evaluation. Oral Expression Ability: Severe Impairment Face Facial Symmetry: Symmetrical (Grossly symmetrical at rest.) To note, the patient did not follow verbal or visual cues for completion of an oral mechanism evaluation. The clinician cannot comment of lingual symmetry, strength, or range of motion. Oral-Facial Assessment Oral-Facial Dentition: Normal Labial Seal Description: Normal Dysphagia Evaluation Consistencies Presented: Regular, Thin Liquid, Pureed Oral Phase: Anterior Spillage (Bilateral (thin liquid)), Absent Oral Transit ( The patient did not demonstrate adequate mastication of the solid consistency and absent oral transit. The cracker was removed from the patient's inner, front lip by clinician finger sweep.) No pharyngeal impairments were noted throughout the evaluation. - No signs/symptoms of aspiration were demonstrated with multiple boluses of thin liquid (teaspoon, cup drink) or puree. The solid cracker was not masticated by the patient and was removed by a finger sweep from the clinician from the front, lower lip. Dietary Recommendations: Pureed Liquid Recommendations: Thin - Crush medication and place in puree for administration. - 1:1 feeding assistance. Swallowing Precautions: No Straw, Small Bites and Sips, Sitting 90 Degrees 30 Post Intake Dysphagia Evaluation Summary The patient demonstrated mild oral dysphagia characterized by absent mastication and posterior movement of solid bolus consistency. Barriers to Learning Cognition. Speech-Plan Treatment Plan Speech Therapy Treatment Plan: Discontinue ST Evaluation, only. Frequency: 1 time per month (Evaluation, only.) Estimated Hrs Per Day: Other (Evaluation, only.) Rehab Potential: Guarded Safety Risks/Education Teaching Recipient: Patient Teaching Methods: Discussion Response to Teaching: Reinforcement Needed Education Topics Provided: Results, Recommendation, Plan of Care, Swallowing Strategies Time Speech Therapy Time In: 08:45 Speech Therapy Time Out: 09:00 Total Billed Time: 15 Billed Treatment Time 1, ARIAS MAIN November 28, 2017 10:51
--- NOTE | 2017-11-28 11:35 | Occupational Therapy Eval ---
OT Evaluation-General/PLF Medical Diagnosis Admission Date November 27, 2017 at 18:07 Medical Diagnosis: Altered Mental Status; Suspected Meningitis Onset Date: November 27, 2017 Therapy Diagnosis Therapy Diagnosis: weakness, debility Height/Weight Height (Feet): 5 Height (Inches): 3.00 Weight (Pounds): 160 Weight (Ounces): 2.0 Precautions Precautions/Isolations: Droplet Isolation, Seizure, Fall Prevention Safety Interventions: Bed Exit Alarm Weight Bear Status Weight Bearing Restriction: Weight Bearing/Tolerated Referral Referral Reason: Evaluation/Treatment Medical History Pertinent Medical History: DM, Dementia, HTN Social History Home: [facility] ADL-Prior Level of Function ADL PLOF Comments Pt is a poor historian and is unable to verbally communicate with OT regarding PLOF. Medical chart reports that she was a resident of [facility]. OT Current Status Subjective Pt was sleeping upon arrival, and was able to rouse easily. Pt is unable to communicate her name, and has difficulty following verbal cues for OT assessment. Pain Location: No Pain Reported Mental Status/Objective Patient Orientation: Person Attachments: IV Current Upper Extremity ROM Pt unable to follow verbal cues for AROM assessment, however upon assessment of PROM, pt presents with joint restrictions through shoulder flexion, shoulder abduction, and horizontal shoulder abduction, bilaterally. Pt presents with WNL through PROM of elbow flexion and wrist/digits PROM. Upper Extremity Strength Pt unable to follow verbal cues for MMT of BUE's. Pt unable to maintain isometric hold during PROM of gross joints of UE's. ADL-Treatment Functional [place] Measure 0=Not Assessed/NA 4=Minimal Assistance 1=Total Assistance 5=Supervision or Setup 2=Maximal Assistance 6=Modified [place] 3=Moderate Assistance 7=Complete IndependenceIRFPAI Quality Coding Scale 6 Independent with activity with or without an assistive device 5 Patient requires set up or clean up by helper. Patient completes activity by themselves 4 Supervision or touching assist (CGA). Thornton provide cues , steadying assist 3 The helper provides less than half the effort to complete the activity 2 The helper provides more than half the effort to complete the activity 1 Dependent. The helper does all the effort to complete an activity 7 Patient refused to complete or attempt activity 9 The patient did not perform the activity before the current illness or injury 88 Not attempted due to Medical conditions or safety concerns Grooming (FIM): 1 Upper Body Dressing (FIM): 1 Lower Body Dressing (FIM): 2 (Pt required MaxA while seated EOB to constantine socks. Pt unable to follow verbal or tactile cues to initiate dressing tasks. ) Toileting (FIM): 1 Transfers (B, C, W/C) (FIM): 1 Other Treatments Pt required MaxA for bed mobility and was able to maintain unsupported sitting balance at EOB with supervision. Education OT Patient Education: Correct positioning, Modified ADL techniques, Rehab process, Transfer techniques Teaching Recipient: Patient Teaching Methods: Demonstration Response to Teaching: Unable to Return Demonstration, Unable to Comprehend OT Short Term Goals Short Term Goals Time Frame: Dec 07, 2017 Grooming(FIM): 3 Upper Body Dressing(FIM): 3 Toileting(FIM): 3 Transfers (B,C,W/C) (FIM): 3 Toilet/Commode Transfer(FIM): 3 Additional Short Term Goals: 3-ImproveStrength/Jon 1=Demonstrate adherence to instructed precautions during ADL tasks. 2=Patient will verbalize/demonstrate understanding of assistive devices/ modifications for ADL. 3=Patient will improve strength/tolerance for activity to enable patient to perform ADL's. OT Group Home Goals Pig Sticker Goals Time Frame: Dec 07, 2017 Grooming(FIM): 5 Upper Body Dressing(FIM): 4 Lower Body Dressing(FIM): 4 Toileting(FIM): 4 Transfers (B,C,W/C) (FIM): 5 1=Demonstrate adherence to instructed precautions during ADL tasks. 2=Patient will verbalize/demonstrate understanding of assistive devices/ modifications for ADL. 3=Patient will improve strength/tolerance for activity to enable patient to perform ADL's. OT Education/Plan Problem List/Assessment Assessment: Decreased Activ Tolerance, Decreased Safety Aware, Decreased UE Strength, Dependent Transfers, Impaired Bed Mobility, Impaired Cognition, Impaired Funct Balance, Impaired Self-Care Skills, Restricted Funct UE ROM Discharge Recommendations Plan/Recommendations: Continue POC Therapy D/C Recommendations: 24 hr Supervision, [facility] Placement Barriers to Progress Pt presents with difficulty following all verbal and tactile cues for participation with OT assessment. Pt presented with anxiety and fear when assisted with bed mobility and sit to stand transfer. Treatment Plan/Plan of Care Patient would benefit from OT for education, treatment and training to promote independence in ADL's, mobility, safety and/or upper extremity function for ADL' s. Treatment Duration: Dec 07, 2017 Frequency: 5 times per week Estimated Hrs Per Day: .5 hour per day Rehab Potential: Guarded Time/GCodes Start Time: 11:05 Stop Time: 11:35 Total Time Billed (hr/min): 30 Billed Treatment Time KIM weir 30 minutes PALMIRA EWING OT November 28, 2017 11:35
--- NOTE | 2017-11-28 12:53 | Progress Note (SOAP) ---
Subjective Subjective Date Seen by Provider: November 28, 2017 Time Seen by Provider: 09:45 87 yo f doing better this AM afebrile she follows simple commands even said Hi after I asked her to to say hi a couple times. Rash is improved Review of Systems ROS Unable to Obtain: patient did not answer questions, history of dementia Objective Exam Vital Signs Vital Signs - First Documented 11/27/17 13:44 Temp 96.5 Pulse 96 Resp 18 B/P (MAP) 113/66 (82) Pulse Ox 99 Capillary Refill : Less Than 3 Seconds General Appearance: No Apparent Distress, Chronically ill HEENT: PERRL/EOMI Neck: Non Tender Respiratory: Chest Non Tender, Lungs Clear, Normal Breath Sounds, No Accessory Muscle Use Cardiovascular: Regular Rate, Rhythm (tachycardia), No Edema Gastrointestinal: Normal Bowel Sounds, Non Tender, Soft Rectal: Deferred Back: No CVA Tenderness Extremity: Normal Capillary Refill, Non Tender, Other (eschar on tip of right 2nd,3rd fingers.) Neurologic/Psychiatric: Depressed Affect, Other (does not respond verbally- pulls away from contact.) Skin: Warm/Dry, Rash (blanching rash that is on legs, abdomen, buttocks.) Lymphatic: No Adenopathy Results Lab Vital Signs Date Time Temp Pulse Resp B/P (MAP) Pulse Ox O2 Delivery O2 Flow Rate FiO2 11/29/17 04:00 70 18 135/62 (86) 92 Room Air 11/29/17 03:45 99.6 11/29/17 01:00 81 11/29/17 00:05 99.3 11/29/17 00:00 94 21 145/73 (97) 95 Room Air 11/28/17 20:00 53 19 117/53 (74) 91 Room Air 11/28/17 19:30 93 Room Air 11/28/17 19:00 102 11/28/17 19:00 98.0 98 18 115/62 (79) 92 Room Air 11/28/17 16:00 82 17 151/88 (109) 95 Room Air 11/28/17 15:31 96 Room Air 11/28/17 15:27 97.6 84 16 96 Room Air 11/28/17 15:00 83 18 112/71 (85) 95 Room Air 11/28/17 14:00 78 18 102/55 (71) 95 Room Air 11/28/17 13:00 89 11/28/17 13:00 89 8 130/90 (103) 95 Room Air 11/28/17 12:04 97.6 87 16 115/57 (76) 92 Room Air 11/28/17 12:00 Room Air 11/28/17 11:00 81 18 150/74 (99) 96 Room Air 11/28/17 10:00 87 16 137/60 (85) 96 Room Air 11/28/17 09:00 85 15 109/81 (90) 95 Room Air 11/28/17 08:00 84 13 151/76 (101) 96 Room Air 11/28/17 07:50 94 Room Air 11/28/17 07:45 98.5 87 20 151/75 (100) 94 Room Air 11/28/17 07:00 90 11/28/17 06:00 99 22 128/73 (91) 91 Room Air I & O 11/29/17 07:00 Intake Total 3155 ml Output Total 810 ml Balance 2345 ml Laboratory Tests 11/28/17 11:58: Glucometer 356H 11/28/17 17:09: Glucometer 116H 11/28/17 20:24: Glucometer 197H 11/29/17 03:45: White Blood Count 7.1, Red Blood Count 2.52L, Hemoglobin 8.2#L, Hematocrit 25L, Mean Corpuscular Volume 99, Mean Corpuscular Hemoglobin 33, Mean Corpuscular Hemoglobin Concent 33, Red Cell Distribution Width 15.6H, Platelet Count 86L, Mean Platelet Volume 9.2, Neutrophils (%) (Auto) 77H, Lymphocytes (%) (Auto) 12 , Monocytes (%) (Auto) 11, Eosinophils (%) (Auto) 0, Basophils (%) (Auto) 0, Neutrophils # (Auto) 5.5, Lymphocytes # (Auto) 0.8L, Monocytes # (Auto) 0.8, Eosinophils # (Auto) 0.0, Basophils # (Auto) 0.0, Sodium Level 144, Potassium Level 3.0L, Chloride Level 112H, Carbon Dioxide Level 24, Anion Gap 8, Blood Urea Nitrogen 23H, Creatinine 0.53L, Estimat Glomerular Filtration Rate > 60, BUN/Creatinine Ratio 43, Glucose Level 106H, Calcium Level 7.9L, Phosphorus Level 1.9L, Albumin 2.7L Microbiology 11/27/17 Blood Culture - Preliminary, Resulted No growth 11/27/17 Gram Stain - Final, Resulted 11/27/17 CSF Culture - Preliminary, Resulted No growth Assessment/Plan Assessment/Plan Admission Dx 87 yo F *Sepsis- blood cultures, LP NGTD- 2 g rocephin IV, fluid hydration- blood pressure stable, afebrile, tachycardic, leukocytosis *lactic acidosis- improved with IVF *Diabetes mellitus II with hyperglycemia- q6hr blood sugar checks *dementia- monitor *depression- citalopram. * hypernatremia - switched IVF to 1/2 NS Dispo- keep family updated- they are considering comfort care if she declines in condition. ST to work with patient today; advance diet as tolerated. Assessment and Plan initiated sepsis protocol- antibiotics were given after blood culture but lumbar puncture was obtained late. BP is normtensive, afebrile she is tachycardic and leukocytosis noted- should improve with antibiotics, fluid hydration and improvement of hyperglycemia. Prognosis: overall not good- Family was spoken with over the phone by ER staff - if patient starts to decline they will change to comfort care. Problems: (1) Diabetes mellitus with hyperglycemia Qualifiers: Qualified Codes: E11.65 - Type 2 diabetes mellitus with hyperglycemia; Z79.4 - FDC (current) use of insulin Assessment & Plan: q6hr blood sugar checks- sliding scale insulin (2) Dysthymic disorder Assessment & Plan: continue citalopram also has xanax for anxiety (3) Dementia Qualifiers: Assessment & Plan: frequent re-orientation when alert keep regular routine. (4) Lactic acid acidosis Assessment & Plan: continue IVF trending lactate. resolved (5) Altered mental status Qualifiers: Qualified Codes: R40.0 - Somnolence Assessment & Plan: treating possible underlying infection correcting hyperglycemia monitor her mental status for changes. -improved she smiles and followed simple commands (6) Sepsis affecting skin Assessment & Plan: blood culture, lumbar puncture NGTD continue rocephin 2g - does not look like meningitis -the rash has improved- it is still blanchable. Admission Dx 87 yo F *Sepsis- blood cultures, LP pending- 2 g rocephin IV, fluid hydration- blood pressure stable, afebrile, tachycardic, leukocytosis *lactic acidosis- improved with IVF *Diabetes mellitus II with hyperglycemia- q6hr blood sugar checks *dementia- monitor *depression- citalopram. Dispo- keep family updated- they are considering comfort care if she declines in condition. Clinical Quality Measures Admission Status Admission Dx 87 yo F *Sepsis- blood cultures, LP pending- 2 g rocephin IV, fluid hydration- blood pressure stable, afebrile, tachycardic, leukocytosis *lactic acidosis- improved with IVF *Diabetes mellitus II with hyperglycemia- q6hr blood sugar checks *dementia- monitor *depression- citalopram. Dispo- keep family updated- they are considering comfort care if she declines in condition. DVT/VTE Risk/Contraindication: Risk Factor Score Per Nursin RFS Level Per Nursing on Admit: 4+=Very High TANYA OSPINA MD November 28, 2017 12:53
[2017-11-29] VITALS: BP 145/73
[2017-11-29] MEDS: cefTRIAXone 2 GM/NS 50 ML IVPB IV SCH ×2 (03:06)
[2017-11-29] MEDS: 1/2 NS IV SOLUTION 1,000 ML IV SCH (03:06)
[2017-11-29 04:00] VITALS: BP 135/62
[2017-11-29 04:00] LABS: BASOPHILS % (AUTO) 0 % (0-10); EOSINOPHILS % (AUTO) 0 % (0-10); HEMATOCRIT 25 % (35-52); HEMOGLOBIN 8.2 G/DL (11.5-16.0); LYMPHOCYTES # (AUTO) 0.8 X 10^3 (1.0-4.0); LYMPHOCYTES % (AUTO) 12 % (12-44); MEAN CORPUSCULAR HEMOGLOBIN 33 PG (25-34); MEAN CORPUSCULAR HGB CONC 33 G/DL (32-36); MEAN CORPUSCULAR VOLUME 99 FL (80-99); MEAN PLATELET VOLUME 9.2 FL (7.4-10.4); MONOCYTES # (AUTO) 0.8 X 10^3 (0.0-1.0); MONOCYTES % (AUTO) 11 % (0-12); NEUTROPHILS # (AUTO) 5.5 X 10^3 (1.8-7.8); NEUTROPHILS % (AUTO) 77 % (42-75); PLATELET COUNT 86 10^3/uL (130-400); RED BLOOD COUNT 2.52 10^6/uL (4.35-5.85); RED CELL DISTRIBUTION WIDTH 15.6 % (10.0-14.5); WHITE BLOOD COUNT 7.1 10^3/uL (4.3-11.0)
[2017-11-29 04:20] LABS: ALBUMIN 2.7 GM/DL (3.2-4.5); BUN/CREATININE RATIO 43; CALCIUM 7.9 MG/DL (8.5-10.1); CARBON DIOXIDE 24 MMOL/L (21-32); CHLORIDE 112 MMOL/L (98-107); CREATININE SERUM 0.53 MG/DL (0.60-1.30); GFR ESTIMATED > 60; GLUCOSE 106 MG/DL (70-105); PHOSPHORUS 1.9 MG/DL (2.3-4.7); SODIUM 144 MMOL/L (135-145)
[2017-11-29] MEDS: inSUlin ASPART (NovoLOG) 1 UNIT/0.01 ML (CHARGE PER UNIT) SC SCH ×4 (04:55→21:39)
[2017-11-29] MEDS ORDERED: MAGNESIUM 1 GM/100 ML IVPB 100 ML IV ONE (05:30)
--- NOTE | 2017-11-29 05:41 | Progress Note (SOAP) ---
Subjective Subjective Date Seen by Provider: November 29, 2017 Time Seen by Provider: 08:30 87 yo F improving daily. she did answer simple yes/no questions. She has no concerns. Eating breakfast this AM. Potassium noted to be low. Afebrile, WBC in normal range. -Appears dehydration was a big factor in her illness- as her hgb is back to a normal range as well. She is not on half of her medications that she was on at [facility]. Will discharge back to [facility] with a cleaned up list. Review of Systems ROS Unable to Obtain: patient reports no to ROS, history of dementia Objective Exam Vital Signs Vital Signs Date Time Temp Pulse Resp B/P (MAP) Pulse Ox O2 Delivery O2 Flow Rate FiO2 11/29/17 04:00 70 18 135/62 (86) 92 Room Air 11/29/17 03:45 99.6 11/29/17 01:00 81 11/29/17 00:05 99.3 11/29/17 00:00 94 21 145/73 (97) 95 Room Air 11/28/17 20:00 53 19 117/53 (74) 91 Room Air 11/28/17 19:30 93 Room Air 11/28/17 19:00 102 11/28/17 19:00 98.0 98 18 115/62 (79) 92 Room Air 11/28/17 16:00 82 17 151/88 (109) 95 Room Air 11/28/17 15:31 96 Room Air 11/28/17 15:27 97.6 84 16 96 Room Air 11/28/17 15:00 83 18 112/71 (85) 95 Room Air 11/28/17 14:00 78 18 102/55 (71) 95 Room Air 11/28/17 13:00 89 11/28/17 13:00 89 8 130/90 (103) 95 Room Air 11/28/17 12:04 97.6 87 16 115/57 (76) 92 Room Air 11/28/17 12:00 Room Air 11/28/17 11:00 81 18 150/74 (99) 96 Room Air 11/28/17 10:00 87 16 137/60 (85) 96 Room Air 11/28/17 09:00 85 15 109/81 (90) 95 Room Air 11/28/17 08:00 84 13 151/76 (101) 96 Room Air 11/28/17 07:50 94 Room Air 11/28/17 07:45 98.5 87 20 151/75 (100) 94 Room Air 11/28/17 07:00 90 11/28/17 06:00 99 22 128/73 (91) 91 Room Air I & O 11/29/17 07:00 Intake Total 3155 ml Output Total 810 ml Balance 2345 ml General Appearance: No Apparent Distress HEENT: PERRL/EOMI Neck: Non Tender Respiratory: Chest Non Tender, Lungs Clear, Normal Breath Sounds, No Accessory Muscle Use Cardiovascular: Regular Rate, Rhythm (tachycardia), No Edema Gastrointestinal: Normal Bowel Sounds, Non Tender, Soft Rectal: Deferred Back: No CVA Tenderness Extremity: Normal Capillary Refill, Non Tender, Other (eschar on tip of right 2nd,3rd fingers.) Neurologic/Psychiatric: Depressed Affect, Other (does not respond verbally- pulls away from contact.) Skin: Warm/Dry, Rash (blanching rash that is on legs, abdomen, buttocks.) Lymphatic: No Adenopathy Results Lab Laboratory Tests 11/28/17 11:58: Glucometer 356H 11/28/17 17:09: Glucometer 116H 11/28/17 20:24: Glucometer 197H 11/29/17 03:45: White Blood Count 7.1, Red Blood Count 2.52L, Hemoglobin 8.2#L, Hematocrit 25L, Mean Corpuscular Volume 99, Mean Corpuscular Hemoglobin 33, Mean Corpuscular Hemoglobin Concent 33, Red Cell Distribution Width 15.6H, Platelet Count 86L, Mean Platelet Volume 9.2, Neutrophils (%) (Auto) 77H, Lymphocytes (%) (Auto) 12 , Monocytes (%) (Auto) 11, Eosinophils (%) (Auto) 0, Basophils (%) (Auto) 0, Neutrophils # (Auto) 5.5, Lymphocytes # (Auto) 0.8L, Monocytes # (Auto) 0.8, Eosinophils # (Auto) 0.0, Basophils # (Auto) 0.0, Sodium Level 144, Potassium Level 3.0L, Chloride Level 112H, Carbon Dioxide Level 24, Anion Gap 8, Blood Urea Nitrogen 23H, Creatinine 0.53L, Estimat Glomerular Filtration Rate > 60, BUN/Creatinine Ratio 43, Glucose Level 106H, Calcium Level 7.9L, Phosphorus Level 1.9L, Albumin 2.7L Microbiology 11/27/17 Blood Culture - Preliminary, Resulted No growth 11/27/17 Gram Stain - Final, Resulted 11/27/17 CSF Culture - Preliminary, Resulted No growth Assessment/Plan Assessment/Plan Admission Dx *Sepsis- Assessment and Plan transfer to the floor today change to abx to cefdinir hypernatremia improved with 1/2 NS- will decrease IVF today and monitor po intake- change to NS +20KCl checking magnesium level pt has been on abx for 24hours- taking patient out of isolation precautions. blood cultures/LP- NGTD. Updated daughter of situation -she would like heme/onc consulted to evaluate her low hgb, platelets. Consulting Heme onc for evaluation. Problems: (1) Diabetes mellitus with hyperglycemia Qualifiers: Qualified Codes: E11.65 - Type 2 diabetes mellitus with hyperglycemia; Z79.4 - skilled nursing (current) use of insulin Assessment & Plan: q6hr blood sugar checks- sliding scale insulin (2) Dysthymic disorder Assessment & Plan: continue citalopram also has xanax for anxiety (3) Dementia Qualifiers: Assessment & Plan: frequent re-orientation when alert keep regular routine. (4) Lactic acid acidosis Assessment & Plan: resolved (5) Altered mental status Qualifiers: Qualified Codes: R40.0 - Somnolence Assessment & Plan: treating possible underlying infection correcting hyperglycemia monitor her mental status for changes. -improved she smiles and followed simple commands (6) Sepsis affecting skin Assessment & Plan: blood culture, lumbar puncture NGTD - improved. -WBC improved (7) Hypernatremia Assessment & Plan: changed IV fluids (8) Hypokalemia Assessment & Plan: replaced po, IV Admission Dx 87 yo F *Sepsis- blood cultures, LP NGTD- 2 g rocephin IV, fluid hydration- blood pressure stable, afebrile, tachycardic, leukocytosis *lactic acidosis- improved with IVF *Diabetes mellitus II with hyperglycemia- q6hr blood sugar checks *dementia- monitor *depression- citalopram. * hypernatremia - switched IVF to 1/2 NS Dispo- keep family updated- they are considering comfort care if she declines in condition. ST to work with patient today; advance diet as tolerated. Clinical Quality Measures Admission Status Admission Dx 87 yo F *Sepsis- blood cultures, LP NGTD- 2 g rocephin IV, fluid hydration- blood pressure stable, afebrile, tachycardic, leukocytosis *lactic acidosis- improved with IVF *Diabetes mellitus II with hyperglycemia- q6hr blood sugar checks *dementia- monitor *depression- citalopram. * hypernatremia - switched IVF to 1/2 NS Dispo- keep family updated- they are considering comfort care if she declines in condition. ST to work with patient today; advance diet as tolerated. DVT/VTE Risk/Contraindication: Risk Factor Score Per Nursin RFS Level Per Nursing on Admit: 4+=Very High TANYA OSPINA MD November 29, 2017 05:41
[2017-11-29] MEDS: FOLIC ACID 1 MG TAB PO SCH (06:32)
[2017-11-29] MEDS: POTASSIUM CL 10MEQ/50ML IVPB 50 ML IV SCH ×3 (06:38→08:52)
[2017-11-29] MEDS: NS W/KCL 20 MEQ/L 1,000 ML IV SCH (06:38)
[2017-11-29 07:47] VITALS: BP 115/63
[2017-11-29] MEDS: ALPRAZolam 0.25 MG (XANAX) TAB PO SCH (08:15)
[2017-11-29] MEDS: DIVALPROX SPRINKLE 125 MG (DEPAKOTE) CAP PO SCH ×3 (08:15→21:12)
[2017-11-29] MEDS: predniSONE 10 MG TAB PO SCH (08:52)
[2017-11-29] MEDS ORDERED: LACTULOSE SYRUP 10GM/15ML (ENULOSE) 30ML UDC PO PRN (09:00)
[2017-11-29 10:35] VITALS: BP 129/61
--- NOTE | 2017-11-29 15:23 | Occupational Ther Daily Note ---
OT Current Status-Daily Note Subjective Pt sleeping upon therapist arrival, however was easy to rouse. Pt with no complaints of pain, and was willing to work with OT. Mental Status/Objective Functional [place] Measure 0=Not Assessed/NA 4=Minimal Assistance 1=Total Assistance 5=Supervision or Setup 2=Maximal Assistance 6=Modified [place] 3=Moderate Assistance 7=Complete [place] ADL-Treatment Grooming (FIM): 1 (Pt required total, hand over hand assistance for brushing teeth with verbal cues as well. Pt was able to perform brushing hair with maximum verbal cues to initiate and maintain attention to task. The pt required MaxA for thoroughness of task. Pt required total assistance to wash face/hands. ) Education OT Patient Education: Correct positioning, Purpose of tx/functional activities Teaching Recipient: Patient Teaching Methods: Demonstration, Discussion Response to Teaching: Return Demonstration, Reinforcement Needed OT Short Term Goals Short Term Goals Time Frame: Dec 07, 2017 Grooming(FIM): 3 Upper Body Dressing(FIM): 3 Toileting(FIM): 3 Transfers (B,C,W/C) (FIM): 3 Toilet/Commode Transfer(FIM): 3 Additional Short Term Goals: 3-ImproveStrength/Jon 1=Demonstrate adherence to instructed precautions during ADL tasks. 2=Patient will verbalize/demonstrate understanding of assistive devices/ modifications for ADL. 3=Patient will improve strength/tolerance for activity to enable patient to perform ADL's. OT Co Founder And Cto Goals Usp Goals Time Frame: Dec 07, 2017 Grooming(FIM): 5 Upper Body Dressing(FIM): 4 Lower Body Dressing(FIM): 4 Toileting(FIM): 4 Transfers (B,C,W/C) (FIM): 5 1=Demonstrate adherence to instructed precautions during ADL tasks. 2=Patient will verbalize/demonstrate understanding of assistive devices/ modifications for ADL. 3=Patient will improve strength/tolerance for activity to enable patient to perform ADL's. OT Education/Plan Discharge Recommendations Plan/Recommendations: Continue POC Treatment Plan/Plan of Care Patient would benefit from OT for education, treatment and training to promote independence in ADL's, mobility, safety and/or upper extremity function for ADL' s. Treatment Duration: Dec 07, 2017 Frequency: 5 times per week Estimated Hrs Per Day: .5 hour per day Rehab Potential: Guarded Time/GCodes Start Time: 14:50 Stop Time: 15:22 Total Time Billed (hr/min): 32 Billed Treatment Time visit, ADL2 for 32 minutes PALMIRA EWING OT November 29, 2017 15:23
[2017-11-29 16:00] VITALS: BP 161/76
[2017-11-29 20:00] VITALS: BP 151/68
[2017-11-29] MEDS ORDERED: inSUlin DETERMIR 1 UNIT/0.01 ML (LEVEMIR) CHARGE PER UNIT SQ SCH (21:00)
[2017-11-29] MEDS: CEFDINIR 125 MG/5 ML (OMNICEF) 60 ML PO SCH (21:12)
[2017-11-30 00:30] VITALS: BP 157/72
[2017-11-30] MEDS: NS W/KCL 20 MEQ/L 1,000 ML IV SCH ×2 (01:30→04:25)
[2017-11-30 04:23] VITALS: BP 129/75
[2017-11-30 05:33] LABS: BASOPHILS % (AUTO) 0 % (0-10); EOSINOPHILS % (AUTO) 0 % (0-10); HEMATOCRIT 27 % (35-52); HEMOGLOBIN 8.8 G/DL (11.5-16.0); LYMPHOCYTES # (AUTO) 0.8 X 10^3 (1.0-4.0); LYMPHOCYTES % (AUTO) 16 % (12-44); MEAN CORPUSCULAR HEMOGLOBIN 32 PG (25-34); MEAN CORPUSCULAR HGB CONC 33 G/DL (32-36); MEAN CORPUSCULAR VOLUME 97 FL (80-99); MEAN PLATELET VOLUME 9.3 FL (7.4-10.4); MONOCYTES # (AUTO) 0.6 X 10^3 (0.0-1.0); MONOCYTES % (AUTO) 12 % (0-12); NEUTROPHILS # (AUTO) 3.8 X 10^3 (1.8-7.8); NEUTROPHILS % (AUTO) 73 % (42-75); PLATELET COUNT 100 10^3/uL (130-400); RED BLOOD COUNT 2.73 10^6/uL (4.35-5.85); RED CELL DISTRIBUTION WIDTH 15.5 % (10.0-14.5); WHITE BLOOD COUNT 5.2 10^3/uL (4.3-11.0)
[2017-11-30 05:59] LABS: ALANINE AMINOTRANSFERASE 12 U/L (0-55); ALBUMIN 2.8 GM/DL (3.2-4.5); ALKALINE PHOSPHATASE 64 U/L (40-136); BILIRUBIN,TOTAL 0.4 MG/DL (0.1-1.0); BUN/CREATININE RATIO 34; CALCIUM 8.1 MG/DL (8.5-10.1); CARBON DIOXIDE 23 MMOL/L (21-32); CHLORIDE 111 MMOL/L (98-107); GFR ESTIMATED > 60; GLUCOSE 74 MG/DL (70-105); MAGNESIUM 1.9 MG/DL (1.8-2.4); POTASSIUM 3.8 MMOL/L (3.6-5.0); SODIUM 143 MMOL/L (135-145); TOTAL PROTEIN 5.3 GM/DL (6.4-8.2)
[2017-11-30] MEDS: inSUlin ASPART (NovoLOG) 1 UNIT/0.01 ML (CHARGE PER UNIT) SC SCH ×2 (06:11→12:19)
[2017-11-30] MEDS: FOLIC ACID 1 MG TAB PO SCH (06:14)
[2017-11-30] MEDS ORDERED: CEFD125S3 PO (08:23)
--- NOTE | 2017-11-30 08:25 | Discharge Inst-Simple/Standard ---
Discharge Inst-Standard Discharge Medications New, Converted or Re-Newed RX: Transmitted to Pharmacy Patient Instructions/Follow Up Plan of Care/Instructions/FU: ---discharged back to [facility] ---complete cefdinir liquid antibiotics ---stopped lasix and potassium supplement ---monitor mood/mental status ---encourage meals and frequent fluid hydration Activity as Tolerated: Yes Discharge Diet: No Restrictions Return to The Hospital For: altered mental status TANYA OSPINA MD Nov 30, 2017 08:25
--- NOTE | 2017-11-30 08:26 | Discharge Summary ---
Diagnosis/Chief Complaint Date of Admission November 27, 2017 at 18:07 Date of Discharge November 30, 2017 Admission Diagnosis Admission Diagnosis suspected meningitis Diabetes mellitus with hyperglycemia Dysthymic disorder Dementia Lactic acid acidosis - Altered mental status Sepsis affecting skin Discharge Diagnosis Diabetes mellitus with hyperglycemia Dysthymic disorder Dementia Lactic acid acidosis - resolved Altered mental status Sepsis affecting skin Hypernatremia- resolved Hypokalemia- resolved Dehydration Reason Hospital Visit 87 yo F with history of diabetes, depression, dementia admitted for concern for sepsis, possibly meningitis. She has had a couple UTIs and a bout of cellulitis a couple months ago otherwise she has been fairly healthy. In the last month though her blood sugars have been more out of control. Pt's blood sugar have been >300 the last couple days. Pt was in the restroom and staff at [facility] noted possible seizure activity so she was transferred to the ER. Her blood pressure has remained normotensive and afebrile. Patient's mental status has declined though over last few months ; specifically the last 2days she has not been as responsive to staff. It was noted patient had a rash this weekend that improved but this AM it was back and has continued to spread during her ER visit. She was given meningitic dose of 2g rocephin prior to LP being obtained. Lactic acid improving after IVF down from 6 to 4. Patient admitted to ICU for further workup. [facility] will be called as with the rash and symptoms meningitis is suspected. Discharge Summary Hospital Course Hospital Course 87-year-old female admitted for suspected meningitis. Patient received the 2 g of Rocephin. Lumbar puncture turned out to be clear with no infectious agent identified. Patient was aggressively fluid hydrated, continued on antibiotics, and her hyperglycemia was corrected with insulin. Patient's condition progressively improved. She did return to her baseline verbal and communication skills. Patient does have underlying dementia and has been declining significantly over the past 3 months. A significant factor is she has periods of poor hydration and food intake. This significantly contributed to her state at this admission. Making her illness appear more critical initially. Family was kept updated of patient's care and plans in the event she acutely decompensated. Patient did not develop a fever and remained on room air throughout her hospital stay. By day 2 she was taking significant amounts of nutrition by mouth. It was determined patient did not likely have meningitis but her leukocytosis lactic acidosis was attributed to sepsis, dehydration, hyperglycemia. Patient was switched to liquid cefdinir to complete a 7 day course of antibiotics. Patient's Lasix and potassium supplement was stopped. Patient was deemed stable for discharge back to [facility]. She'll be encouraged to eat and take frequent drinks throughout the day but food or water will not be forced upon her. They will monitor mood and mental status. Of note patient's rash noted on admission that was progressing was blanchable which is not typical of meningitis rash. --At the request of patient's daughter heme/onc was consulted to evaluate her anemia and low platelets. ---discharged back to [facility] ---complete cefdinir liquid antibiotics ---stopped lasix and potassium supplement ---monitor mood/mental status ---encourage meals and frequent fluid hydration Labs Procedures None. Discharge Physical Examination Allergies: Coded Allergies: Sulfa (Sulfonamide Antibiotics) (Verified Allergy, Unknown, 11/27/17) Vitals & I&Os Vital Signs Date Time Temp Pulse Resp B/P (MAP) Pulse Ox O2 Delivery O2 Flow Rate FiO2 11/30/17 15:22 11/30/17 12:30 98.4 83 18 93 Room Air 11/28/17 01:00 2.00 General Appearance: Alert HEENT: Atraumatic Respiratory: Clear to Auscultation Cardiovascular: Regular Rate Abdominal: Normal Bowel Sounds, Soft Skin: Other (eschar on fingers) Neuro: Normal Speech (for patient) Psych/Mental Status: Mental Status NL Discharge Home Medications Reviewed and agree with Discharge Medication list on patient's Discharge Instruction sheet Condition at Discharge back to baseline Instructions to Patient/Family Please see electronic discharge instructions given to patient. Clinical Quality Measures DVT/VTE Risk/Contraindication: Risk Factor Score Per Nursin RFS Level Per Nursing on Admit: 4+=Very High TANYA OSPINA MD Nov 30, 2017 08:26
[2017-11-30 08:30] VITALS: BP 163/84
[2017-11-30] MEDS: predniSONE 10 MG TAB PO SCH (09:20)
[2017-11-30] MEDS: ALPRAZolam 0.25 MG (XANAX) TAB PO SCH (09:20)
[2017-11-30] MEDS: DIVALPROX SPRINKLE 125 MG (DEPAKOTE) CAP PO SCH ×2 (09:20→12:44)
[2017-11-30] MEDS: CEFDINIR 125 MG/5 ML (OMNICEF) 60 ML PO SCH (09:20)
[2017-11-30 12:30] VITALS: BP 168/91
--- NOTE | 2017-11-30 14:59 | Consultation ---
History of Present Illness History of Present Illness Patient Consulted On(fito/time) 11/30/17 14:53 Date Seen by Provider: Nov 30, 2017 Time Seen by Provider: 14:54 History of Present Illness Ms. Bledsoe is an 87 yo female with diabetes and moderate to severe dementia who was admitted on 11/27/17 after being found to have a seizure-like episode at her [facility]. She was found to have severe sepsis of unclear source, and was admitted with a total white count of 21 and a lactic acid of 7. She was treated with empiric broad spectrum antibiotics to cover meningitis. Eventually her leukocytosis and lactic acidosis resolved and she regained mental status. However, she was admitted with a hgb >12 that declined to 8.8 today. Patient is completely disoriented to person, place, time and situation and cannot provide any meaningful history. She denies all symptoms. Allergies and Home Medications Allergies Coded Allergies: Sulfa (Sulfonamide Antibiotics) (Verified Allergy, Unknown, 11/27/17) Home Medications Acetaminophen 500 Mg Tablet, 1,000 MG PO BID, (Reported) TAKE 2 (500 MG) TABLETS TWICE DAILY Alprazolam 0.25 Mg Tablet, 0.25 MG PO HS, (Reported) Alprazolam 0.25 Mg Tablet, 0.125 MG PO DAILY, (Reported) TAKE 1/2 (0.25 MG) TABLET ONCE DAILY Cefdinir 125 Mg/5 Ml Susp.recon, 300 MG PO BID Prescribed by: TANYA OSPINA on 11/30/17 0823 Cholecalciferol (Vitamin D3) 1,000 Unit Capsule, 1,000 UNIT PO DAILY, (Reported) Citalopram Hydrobromide 10 Mg Tablet, 10 MG PO DAILY, (Reported) Cyanocobalamin (Vitamin B-12) 1,000 Mcg Tablet, 1,000 MCG PO DAILY, (Reported) Divalproex Sodium 125 Mg Cap, 125 MG PO TID, (Reported) Folic Acid 1 Mg Tablet, 1 MG PO DAILY, (Reported) Ibuprofen 200 Mg Capsule, 400 MG PO Q4H PRN for PAIN-MILD, (Reported) TAKE 2 (200 MG) TABLETS EVERY 4 HOURS NEEDED FOR MILD PAIN Insulin Aspart 100 Unit/1 Ml Susp, 10 UNIT SQ AC, (Reported) GIVE 10 UNITS FOR BLOOD SUGAR OF 420 OR HIGHER, RECHECK IN ONE HOUR. IF BLOOD SUGAR IS OVER 250 WHEN RECHECKED, GIVE ANOTHER 5 UNITS Insulin Aspart 100 Unit/1 Ml Susp, 5 UNIT SQ AC, (Reported) GIVE 5 UNITS IF BLOOD SUGAR RECHECK IS OVER 250. RECHECK EACH HOUR. Insulin Detemir 100 Unit/1 Ml Insuln.pen, 10 UNIT SQ HS, (Reported) Lactulose 20 Gm/30 Ml Solution, 20 GM PO BID PRN for CONSTIPATION-3RD LINE, ( Reported) Magnesium Hydroxide 400 Mg/5 Ml Oral.susp, 30 ML PO Q6H PRN for CONSTIPATION- 7TH LINE, (Reported) Metformin HCl 500 Mg Tab.er.24h, 500 MG PO BID, (Reported) Polyethylene Glycol 3350 17 Gm Powd.pack, 17 GM PO Q12H PRN for CONSTIPATION- 2ND LINE, (Reported) Prednisone 10 Mg Tab, 10 MG PO DAILY, (Reported) Salicylic Acid 325 Ml Shampoo, APPFUL TOP MON, THURS PRN for DANDRUFF, (Reported ) Patient Home Medication List Home Medication List Reviewed: Yes Past [id number]-[id number]-Ibhfjt Hx Past Med/Social Hx: Reviewed and Corrections made Patient Social History Alcohol Use: Denies Use Recreational Drug Use: No Smoking Status: Unknown if Ever Smoked 2nd Hand Smoke Exposure: No Recent Foreign Travel: No Contact w/Someone Who Travel: No Recent Infectious Disease Expo: No Recent Hopitalizations: No Physical Abuse: No Sexual Abuse: No Mistreated: No Fear: No Past Medical History Surgeries: Yes Abdominal Respiratory: No Cardiac: Yes Hypertension Neurological: Yes Dementia Genitourinary: No Gastrointestinal: Yes Chronic Constipation Musculoskeletal: Yes Rheumatoid Arthritis Endocrine: Yes Diabetes, Non-Insulin dep HEENT: No Cancer: No Psychosocial: Yes Anxiety, Depression Nursing Suicide Risk Score: 0 Integumentary: No Blood Disorders: Yes (anemia) Adverse Reaction/Blood Tranf: No Review of Systems-General ROS-Unable to Obtain: patient denies all symptoms but is not a reliable historian Constitutional: no symptoms reported EENTM: no symptoms reported Respiratory: no symptoms reported Cardiovascular: no symptoms reported Gastrointestinal: no symptoms reported Genitourinary: no symptoms reported Musculoskeletal: no symptoms reported Skin: no symptoms reported Psychiatric/Neurological: No Symptoms Reported Physical Exam-General Problems Physical Exam Vital Signs Vital Signs - First Documented 11/27/17 13:44 Temp 96.5 Pulse 96 Resp 18 B/P (MAP) 113/66 (82) Pulse Ox 99 Capillary Refill : Less Than 3 Seconds General Appearance: WD/WN, no apparent distress Eyes: Bilateral Eye Normal Inspection, Bilateral Eye PERRL, Bilateral Eye EOMI HEENT: PERRL/EOMI, normal ENT inspection, pharynx normal Neck: non-tender, full range of motion, supple, normal inspection Respiratory: chest non-tender, no respiratory distress, no accessory muscle use , rhonchi, wheezing Cardiovascular: normal peripheral pulses, regular rate, rhythm, no edema, other (old necrotic lesions/chronic wounds of distal 2nd and 3rd digits of right hand) Gastrointestinal: normal bowel sounds, non tender, soft, no organomegaly, no pulsatile mass Back: normal inspection Extremities: normal range of motion, non-tender, no pedal edema Neurologic/Psychiatric: alert, normal mood/affect, disoriented x 3 Skin: normal color, warm/dry, ecchymosis (scattered over arms and legs) Lymphatic: no adenopathy Assessment/Plan Assessment/Plan Admission Diagnosis/Plan Patient is an 87 yo female who was admitted and treated successfully for severe sepsis of unclear source. She possibly developed (acute?) anemia and thrombocytopenia during her hospital course, but I do not have access to the patient's baseline blood counts. I somehow doubt that her baseline hgb is normal, as it was found to be on the day of admission. Since all of the patient 's blood lines dropped during the hospitalization, I suspect she was hypovolemic and hemoconcentrated on admission, transiently causing her blood counts to be normal. Now that she is rehydrated, her true blood counts are being revealed; again, however, this is conjecture since I do not have access to [employer] haul truck [employer] labs. Even if there was a 2g drop in hgb, it is very common to see transient decline in blood counts in settings of acute infection. That being said, if she does have a true 3-4g drop in hgb since admission, she still needs endoscopic evaluation to rule out active bleeding. If today's blood counts are her actual baseline, it is feasible that she has myelodysplastic syndrome since she has decline in multiple blood lines and her MCV is borderline high. Nutritional deficiencies are unlikely since she takes vitamin B12 and folate daily. If her iron was low, MCV should be low. I would not recommend workup of MDS, however, because patient's severely impaired performance status and severe dementia make her a very poor candidate for aggressive treatment. I will continue to follow the patient while she is in the hospital. On discharge, we can see her in our clinic in 1-2 months to see if her blood counts have recovered. Thank you for allowing me to participate in her care. Clinical Quality Measures DVT/VTE Risk/Contraindication: Risk Factor Score Per Nursin RFS Level Per Nursing on Admit: 4+=Very High MALOU BUSH MD Nov 30, 2017 14:59
--- NOTE | 2017-12-03 14:27 | Physician Query Clarification ---
PQ-Link Manifestation-Etiology Admission/Discharge Admission Date: November 27, 2017 at 18:07 Discharge Date: Nov 30, 2017 at 15:18 The medical record reflects the following clinical scenario: History/Risk Factors: Sepsis, Dementia, HTN, RA, DM-2 Clinical Findings: Possible seizure activity, rash, Lactic acid 6.96, WBC 21.2 Treatment: IV Rocephin, PO Cefdinir Question: Can you specify if the poss seizure activity, rash, WBC 21.2, Lactic acid 6.96 is due to/associated with Meningitis? If not, please specify the underlying cause of the sepsis.Please document a response below PHYSICIAN RESPONSE Manifestation due to/assoic: No Explanation of clincal finding upon further review - I do not think she had meningitis - sepsis origin was originally attributed to meningitis. Sepsis was likely due to a respiratory illness. The lactic acid, WBC, is likely due to multifactorial both sepsis, dehydration as both improved with fluid hydration and antibiotics. In responding to this query, please exercise your independent professional judgment. The purpose of this communication is to more accurately reflect the complexity of your patients condition. The fact that a question is asked does not imply that any particular answer is desired or expected. Thank you for your timely response to this clarification. Requestors name: Madhuri THIS PHYSICIAN QUERY FORM IS A PERMANENT PART OF THE MEDICAL RECORD MADHURI RACHEL Dec 03, 2017 14:27 TANYA OSPINA MD Dec 04, 2017 08:12
== END 2017-11-30 15:18 | DRG 872 ==
LOC: EDUNIT# 13:22 → ER 13:23 → ICU 18:07 → 4TH 11-29 10:33
PROVIDERS: ADMIT Family Medicine; ATTEND Family Medicine
DX: A41.9 Sepsis, unspecified organism (principal); J98.9 Respiratory disorder, unspecified; R21 Rash and other nonspecific skin eruption; E87.0 Hyperosmolality and hypernatremia; R40.0 Somnolence; F34.1 Dysthymic disorder; F03.90 Unspecified dementia, unspecified severity, without behavioral disturbance, psychotic disturbance, mood disturbance, and anxiety; R56.9 Unspecified convulsions; Z66 Do not resuscitate; I10 Essential (primary) hypertension; K59.09 Other constipation; M06.9 Rheumatoid arthritis, unspecified; E86.0 Dehydration; E11.65 Type 2 diabetes mellitus with hyperglycemia; E87.6 Hypokalemia; Z79.84 Long term (current) use of oral hypoglycemic drugs
CPT/HCPCS: 36415; 51702; 70450; 71045; 80053; 80069; 80164; 81000; 82945; 82962; 83605; 83735; 84157; 85007; 85025; 85027; 85379; 85384; 85610; 85730; 86141; 87040; 87070; 87205; 87252; 89051; 93041; 96361; 96365